=== PATIENT | female | born 1965 | race Two or more races ===

== ENCOUNTER 2016-10-24 18:10 | Inpatient (IN) | payer MEDICAID, OTHER ==
[~2016-10-24] VITALS: Ht 162.6 cm; Wt 74.2 kg
[2016-10-24] MEDS ORDERED: ONDANSETRON PF 4 MG/2 ML VIAL. ONE (18:31)
[2016-10-24] MEDS ORDERED: IV NORMAL SALINE 1000ML BAG 1,000 ML IV SCH (18:35)
[2016-10-24 18:44] LABS: BASO # 0.1 x10^3/uL (0.0-0.2); BASO % 1 % (0-3); EOS % 0 % (0-3); HEMATOCRIT 40.9 % (36.0-47.0); LYMPH # 1.4 x10^3/uL (1.0-4.8); LYMPH % 11 % (24-48); MEAN CORPUSCULAR HEMOGLOBIN 27 pg (25-35); MEAN CORPUSCULAR HGB CONC 34 g/dL (31-37); MEAN CORPUSCULAR VOLUME 78 fL (79-100); MONO % 5 % (0-9); NEUT % 84 % (31-73); PLATELET COUNT 503 x10^3/uL (140-400); RED BLOOD COUNT 5.25 x10^6/uL (3.50-5.40); RED CELL DISTRIBUTION WIDTH 13.9 % (11.5-14.5); WHITE BLOOD COUNT 13.2 x10^3/uL (4.0-11.0)
[2016-10-24] MEDS ORDERED: ONDANSETRON PF 4 MG/2 ML VIAL. IV ONE ×2 (18:45→20:30)
[2016-10-24 18:54] LABS: INR 1.2 (0.8-1.1)
[2016-10-24 18:58] LABS: NEG OBC SER NEG; POS OBC SER POS
[2016-10-24 18:59] LABS: CALCIUM 9.1 mg/dL (8.5-10.1); CREATININE 0.8 mg/dL (0.6-1.0); GFR 75.9; POTASSIUM 3.7 mmol/L (3.5-5.1)
[2016-10-24 19:11] LABS: ALBUMIN 3.7 g/dL (3.4-5.0); DIRECT BILIRUBIN 0.1 mg/dL (0.0-0.2); MAGNESIUM 1.7 mg/dL (1.8-2.4); TOTAL BILIRUBIN 0.3 mg/dL (0.2-1.0); TOTAL PROTEIN 8.2 g/dL (6.4-8.2)
[2016-10-24 19:12] LABS: BILIRUBIN,URINE NEGATIVE (NEG); GLUCOSE,URINE 500 mg/dL (NEG); NITRITE,URINE NEGATIVE (NEG); PROTEIN,URINE NEGATIVE (NEG-TRACE); UROBILINOGEN,URINE 0.2 mg/dL (0.2 mg/dL)
[2016-10-24 19:17] LABS: BARBITURATES NEG (NEG); BENZODIAZEPINES NEG (NEG); CANNABINOIDS NEG (NEG); COCAINE NEG (NEG); METHADONE NEG (NEG); OPIATES NEG (NEG); PHENCYCLIDINE NEG (NEG)
[2016-10-24 19:23] LABS: BACTERIA,URINE 0 /HPF (0-FEW); RBC,URINE 0 /HPF (0-2); SQUAMOUS EPITHELIAL CELL,UR OCC /LPF; WBC,URINE OCC /HPF (0-4)
[2016-10-24 19:27] LABS: ETHANOL < 10 mg/dL (0-10)
[2016-10-24] MEDS ORDERED: ACETYLCYSTEINE IV ONE ×2 (19:45→22:00)
[2016-10-24] MEDS ORDERED: DEXTROSE 5% IV ONE ×2 (19:45→22:00)
--- NOTE | 2016-10-24 20:01 | PHYS DOC ---
Past Medical History Past Medical History: Unknown Past Surgical History: Other Additional Past Surgical Histo: unknown Additional Information: unknown Additional Information: unknown Drug Use: None Social History Narrative: unknown Adult General Chief Complaint Chief Complaint: OVERDOSE HPI HPI Patient is a 51 year old female who presents with complaint of nausea and vomiting. The patient was brought to the emergency department by EMS for concern of drug overdose. Patient made a family that she took 2 bottles of acetaminophen tablets, equating to approximately 200 tablets. She states that she did this at 1100 this morning. Patient voices suicidal intent for overdose. Patient is not answering any further questions in the emergency department. Patient has had active vomiting upon arrival in the emergency department and EMS reports the patient was having vomiting prior to arrival. Patient noted to be lethargic and display altered mental status by the patient's family. Review of Systems Review of Systems Constitutional: Denies fever or chills [] Eyes: Denies change in visual acuity, redness, or eye pain [] HENT: Denies nasal congestion or sore throat [] Respiratory: Denies cough or shortness of breath [] Cardiovascular: Denies chest pain or edema [] GI: Nausea, vomiting, denies diarrhea [] : Denies dysuria or hematuria [] Musculoskeletal: Denies back pain or joint pain [] Integument: Denies rash or skin lesions [] Neurologic: Denies headache, focal weakness or sensory changes [] Current Medications Current Medications Current Medications Medications (Trade) Dose Ordered Sig/Sriram Start Time Stop Time Status Last Admin Dose Admin Acetylcysteine 4.2 gm/Dextrose 521 ml @ 125 mls/hr 1X ONCE 10/24/16 22:00 10/25/16 02:10 Acetylcysteine 8.39 gm/Dextrose 1,041.95 ml @ 62.5 mls/ hr 1X ONCE 10/25/16 02:00 10/25/16 18:40 Acetylcysteine 12.59 gm/Dextrose 262.95 ml @ 200 mls/ hr 1X ONCE 10/24/16 19:45 10/24/16 21:03 Ondansetron HCl (Zofran) 4 mg 1X ONCE 10/24/16 18:45 10/24/16 18:46 DC 10/24/16 18:35 4 MG Sodium Chloride 1,000 ml @ 1,000 mls/hr Q1H 10/24/16 18:35 10/24/16 19:34 DC Allergies Allergies Allergies Coded Allergies Type Severity Reaction Last Updated Verified No Known Drug Allergies 10/24/16 No Physical Exam Physical Exam Constitutional: Lethargic, afebrile, actively vomiting. [] HENT: Normocephalic, atraumatic, bilateral external ears normal, oropharynx dry , no oral exudates, nose normal. [] Eyes: PERRLA, EOMI, conjunctiva normal, no discharge. [] Neck: Normal range of motion, no tenderness, supple, no stridor. [] Cardiovascular:Heart rate regular rhythm, no murmur [] Lungs & Thorax: Bilateral breath sounds clear to auscultation [] Abdomen: Bowel sounds normal, soft, no tenderness, no masses, no pulsatile masses. [] Skin: Warm, dry, no erythema, no rash. [] Back: No tenderness, no CVA tenderness. [] Extremities: No tenderness, no cyanosis, no clubbing, ROM intact, no edema. [] Neurologic: Lethargic, confused, normal motor function, normal sensory function , no focal deficits noted. [] Current Patient Data Vital Signs Vital Signs Date Time Temp Pulse Resp B/P (MAP) Pulse Ox O2 Delivery O2 Flow Rate FiO2 10/24/16 19:43 85 16 137/77 (97) 96 Room Air 10/24/16 18:10 98.2 98.2 Lab Values Laboratory Tests Test 10/24/16 18:09 10/24/16 18:25 10/24/16 18:55 10/24/16 19:12 POC Urine HCG, Qualitative Hcg negative (Negative) White Blood Count 13.2 x10^3/uL (4.0-11.0) H Red Blood Count 5.25 x10^6/uL (3.50-5.40) Hemoglobin 14.0 g/dL (12.0-15.5) Hematocrit 40.9 % (36.0-47.0) Mean Corpuscular Volume 78 fL (79-100) L Mean Corpuscular Hemoglobin 27 pg (25-35) Mean Corpuscular Hemoglobin Concent 34 g/dL (31-37) Red Cell Distribution Width 13.9 % (11.5-14.5) Platelet Count 503 x10^3/uL (140-400) H Neutrophils (%) (Auto) 84 % (31-73) H Lymphocytes (%) (Auto) 11 % (24-48) L Monocytes (%) (Auto) 5 % (0-9) Eosinophils (%) (Auto) 0 % (0-3) Basophils (%) (Auto) 1 % (0-3) Neutrophils # (Auto) 11.1 x10^3uL (1.8-7.7) H Lymphocytes # (Auto) 1.4 x10^3/uL (1.0-4.8) Monocytes # (Auto) 0.6 x10^3/uL (0.0-1.1) Eosinophils # (Auto) 0.0 x10^3/uL (0.0-0.7) Basophils # (Auto) 0.1 x10^3/uL (0.0-0.2) Prothrombin Time 14.0 SEC (11.7-14.0) Prothrombin Time INR 1.2 (0.8-1.1) H PTT 30 SEC (24-38) Sodium Level 133 mmol/L (136-145) L Potassium Level 3.7 mmol/L (3.5-5.1) Chloride Level 96 mmol/L (98-107) L Carbon Dioxide Level 20 mmol/L (21-32) L Anion Gap 17 (6-14) H Blood Urea Nitrogen 15 mg/dL (7-20) Creatinine 0.8 mg/dL (0.6-1.0) Estimated GFR (Cockcroft-Gault) 75.9 Glucose Level 216 mg/dL (70-99) H Lactic Acid Level 4.8 mmol/L (0.4-2.0) *H Calcium Level 9.1 mg/dL (8.5-10.1) Magnesium Level 1.7 mg/dL (1.8-2.4) L Total Bilirubin 0.3 mg/dL (0.2-1.0) Direct Bilirubin 0.1 mg/dL (0.0-0.2) Aspartate Amino Transferase (AST) 23 U/L (15-37) Alanine Aminotransferase (ALT) 36 U/L (14-59) Alkaline Phosphatase 124 U/L (46-116) H Total Protein 8.2 g/dL (6.4-8.2) Albumin 3.7 g/dL (3.4-5.0) Lipase 190 U/L (73-393) Serum Test, Qualitative Negative (NEG) Salicylates Level < 2.8 mg/dL (2.8-20.0) L Salicylate Last Dose Date Salicylate Last Dose Time Acetaminophen Level 348.72 mcg/ml (10-30) *H Acetaminophen Last Dose Date Acetaminophen Last Dose Time Ethyl Alcohol Level < 10 mg/dL (0-10) Urine Color Yellow Urine Clarity Clear Urine pH 5.0 Urine Specific [place] >=1.030 Urine Protein Negative mg/dL (NEG-TRACE) Urine Glucose (UA) 500 mg/dL (NEG) Urine Ketones (Stick) Negative mg/dL (NEG) Urine Blood Negative (NEG) Urine Nitrite Negative (NEG) Urine Bilirubin Negative (NEG) Urine Urobilinogen Dipstick 0.2 mg/dL (0.2 mg/dL) Urine Leukocyte Esterase Negative (NEG) Urine RBC 0 /HPF (0-2) Urine WBC Occ /HPF (0-4) Urine Squamous Epithelial Cells Occ /LPF Urine Bacteria 0 /HPF (0-FEW) Urine Opiates Screen Neg (NEG) Urine Methadone Screen Neg (NEG) Urine Barbiturates Neg (NEG) Urine Phencyclidine Screen Neg (NEG) Urine Amphetamine/Methamphetamine Neg (NEG) Urine Benzodiazepines Screen Neg (NEG) Urine Cocaine Screen Neg (NEG) Urine Cannabinoids Screen Neg (NEG) Urine Ethyl Alcohol Neg (NEG) Ammonia 17 mcmol/L (11-34) Laboratory Tests 10/24/16 18:25 Laboratory Tests 10/24/16 18:25 EKG EKG Not performed [] Radiology/Procedures Radiology/Procedures Not performed [] Course & Med Decision Making Course & Med Decision Making Pertinent Labs and Imaging studies reviewed. (See chart for details) Patient's Tylenol level was found to be severely toxic. Patient was initiated on Acetadote in the emergency department. The patient will require admission to ICU for further monitoring and treatment. I spoke with Dr. Alcantra who accepted care patient in hospital. Spoke with family regarding lab findings and treatment plan and they are in agreement at time of admission. Critical care time excluding procedures: 45 minutes Dragon Disclaimer Dragon Disclaimer This electronic medical record was generated, in whole or in part, using a voice recognition dictation system. Departure Departure Impression: Primary Impression: Intentional acetaminophen overdose Additional Impressions: Acetaminophen toxicity Lactic acidosis Hyperglycemia Disposition: 09 ADMITTED INPATIENT Admitting Physician: Other Condition: GUARDED Referrals: NO PCP (PCP) Problem Qualifiers Primary Impression: Intentional acetaminophen overdose Encounter type: initial encounter Qualified Codes: T39.1X2A - Poisoning by 4 -aminophenol derivatives, intentional self-harm, initial encounter Additional Impressions: Acetaminophen toxicity Encounter type: initial encounter Injury intent: intentional self-harm Qualified Codes: T39.1X2A - Poisoning by 4-aminophenol derivatives, intentional self-harm, initial encounter HUBER GAYLE MD October 24, 2016 20:01
[2016-10-24] MEDS ORDERED: ONDANSETRON PF 4 MG/2 ML VIAL. IV PRN (20:15)
[2016-10-24] MEDS ORDERED: METOCLOPRAMIDE HCL 10 MG/2 ML VIAL. IV ONE (21:45)
[2016-10-24] MEDS ORDERED: diphenhydrAMINE 50 MG/ML VIAL IVP ONE (22:30)
[2016-10-24 22:45] VITALS: BP 122/75
[2016-10-24] MEDS ORDERED: CALCIUM CARBONATE 500 MG TAB.CHEW PO ONE (22:45)
[2016-10-24 23:00] VITALS: BP 117/73
[2016-10-24] MEDS: FAMOTIDINE 20 MG TABLET. PO SCH (23:10)
[2016-10-24] MEDS: IV NORMAL SALINE 1000ML BAG 1,000 ML IV SCH (23:10)
[2016-10-24 23:15] VITALS: BP 116/68
[2016-10-24 23:30] VITALS: BP 118/70
[2016-10-24 23:45] VITALS: BP 109/60
[2016-10-25] VITALS (13 sets, daily range): BP systolic 98–155; BP diastolic 55–81
--- NOTE | 2016-10-25 00:18 | HP ---
ADMIT DATE: 10/24/2016 CHIEF COMPLAINT: Intentional Tylenol overdose. HISTORY OF PRESENT ILLNESS: The patient is a 51-year-old [place] woman presenting to the Emergency Room with her family for intentional drug overdose with Tylenol. Apparently, she told one of her daughters that she took 2 bottles of acetaminophen equaling approximately 200 tablets. She did this early this morning at 11:00. She voiced suicidal intent as she feels nobody is taking care of her. She was actively vomiting on arrival to the Emergency Room and had done so prior as well. She was noted to be lethargic by the family. On current exam, however, she is alert, complains of gastritis. On further questioning with the family, she apparently has done drug overdoses for suicidal ideation in the past. She does not see a psychiatric care regularly. PAST MEDICAL HISTORY: Unknown ____. FAMILY HISTORY: Positive for one of her sisters with depression. SOCIAL HISTORY: Currently lives with one of her daughters and her family. No smoking and no drugs. ALLERGIES: No known drug allergies. HOME MEDICATIONS: Unknown. REVIEW OF SYSTEMS: Currently, complaining only of burning in the epigastric area. Denies any shortness of breath, chest pain, nausea or vomiting. PHYSICAL EXAMINATION: VITAL SIGNS: From today show a blood pressure of 142/78, heart rate of 77, respiratory rate at 16. She is afebrile. GENERAL: This is a 51-year-old [place] woman resting on a stretcher, eyes closed, does open eyes on verbal input. HEENT: Shows no scleral icterus. NECK: Supple without any lymphadenopathy. LUNGS: Clear. HEART: Has regular rate and rhythm. ABDOMEN: Has positive bowel sounds, soft, tenderness to palpation in the epigastric area. EXTREMITIES: Show no edema. SKIN: Warm, soft and dry. LABORATORY DATA: CBC with a WBC of 13.2, hemoglobin 14.0, platelets of 503, MCV at 78. Chemistries with a BUN and creatinine of 15 and 0.8, sodium of 133, bicarbonate at 20, glucose at 216, magnesium 1.7. LFTs with normal transaminases, alkaline phosphatase minimally elevated at 124. Tox screen positive for acetaminophen at 348.7, approximately 7 hours post-ingestion. ASSESSMENT AND PLAN: The patient is a 51-year-old [place] woman with intentional Tylenol overdose. She hopefully has vomited the majority of her pills. Nevertheless, Tylenol level is very elevated. We will start her on acetylcysteine for management of toxicity. She will receive regular monitoring of Tylenol levels. Should her levels become even higher or she become symptomatic with liver failure, we will have to transfer to . Situation was discussed with her children. The patient appears to be diabetic by labs. We will start insulin sliding scale for now. Hopefully, one of the daughters will be bringing in her med list. The patient is anemic with microcytosis as well as thrombocytosis, suspicious for iron deficiency. We will obtain iron labs as well. For prophylaxis, she will be started on Pepcid. We will start SCDs for the time being. If she remains in the ICU prolonged, we will start Lovenox. SHAHANA DURAND MD DR: UR/nts JOB#: [id number] / [id number]
[2016-10-25] MEDS ORDERED: ACETYLCYSTEINE IV ONE ×3 (01:45→09:00)
[2016-10-25] MEDS ORDERED: DEXTROSE 5% IV ONE ×3 (01:45→09:00)
--- NOTE | 2016-10-25 03:32 | ACF ---
Admission Forms Criteria SUBSTANCE ABUSE Clinical Indications for Admission to Inpatient Care (Place 'X' for any and all applicable criteria): Admission is indicated due to ANY ONE of the following(1)(2)(3)(4)(5): [ ]I. Delirium due to alcohol or sedative A withdrawal B ( Also use Delirium Criteria as appropriate)1,6,7 [ ]II. Alcohol or sedative withdrawal with high-risk indicator as manifested by ALL of the following1,3,6,7 [ ]a) Signs of withdrawal as indicated by ANY ONE of the following: [ ]i) Heart rate greater than 100 beats per minute [ ]ii) Nausea or vomiting [ ]iii) Other physical signs of alcohol or sedative withdrawal [ ]iv) Tremor [ ](v) Increased perspiration [ ]b) Elevated risk due to a historical or comorbid factor as indicated by ANY ONE of the following: [ ]i) History of delirium due to alcohol or sedative withdrawal [ ]ii) History of repetitive seizures due to alcohol or sedative withdrawal C [ ]iii) Intrinsic seizure disorder (epilepsy) [ ]iv) [ ]v) Comorbid medical condition that can be dangerously destabilized by alcohol or sedative withdrawal (eg, severe cardiac disease) [ ]III. Severe alcohol or sedative withdrawal that is unmanageable at lower level of care, as manifested by ALL of the following1,3,6,7 [ ]a) Marked signs of withdrawal as indicated by ANY ONE of the following: [ ]i) Heart rate greater than 120 beats per minute [ ]ii) Vomiting [ ]iii) Grossly visible tremor [ ]iv) Profuse perspiration [ ]v) Temperature greater than 38.3 degrees C (101 degrees F) [ ]vi) Other marked physical signs of alcohol or sedative withdrawal [ ]b) Signs of withdrawal which require inpatient treatment as indicated by ANY ONE of the following: [ ]i) Inadequate response to pharmacotherapy in emergency department or other appropriate lower level of care [ ]ii) Lower level of care not feasible or appropriate (eg, unavailable or inappropriate to patient condition or treatment history) [ ]IV. Severely complicated opioid withdrawal that requires astmum-ndc-sxcbb care as manifested by ALL of the following 1,4,7,11 [ ]a) Vomiting or diarrhea due to opioid withdrawal [ ]b) Marked dehydration or electrolyte abnormality that cannot be corrected (to near normal) in an emergency department or other ambulatory setting (eg, serum K<2.5 mEq/L , serum Na <130 mEq/L [X ]V. Acute toxicity or instability from substance use requiring inpatient care (eg, altered mental status, respiratory depression) that has had inadequate response to, or is judged inappropriate for, treatment at lower level of care (eg, emergency department, observation care) [ ]. Other inpatient medical or psychiatric care is needed due to risk or comorbidity as indicated by ALL of the following(18): [ ]a) Treatment is needed because of patient risk due to ANY ONE of the following: [ ]i) Medical condition (eg, severe cardiac disease) that requires 24-hour monitoring and treatment due to danger of destabilization by alcohol or sedative withdrawal is present [ ]ii) Imminent danger to self is present due to ANY ONE of the following(19)(20)(21): [ ]1) Imminent risk for recurrence of Suicide attempt or act of serious Harm to self is present as indicated by ALL of the following: [ ]A. There has been very recent Suicide attempt or deliberate act of serious Harm to self. [ ]B. There has not been Sufficient relief of the factors that precipitated the attempt or act. [ ]2) Current plan for suicide or serious Harm to self is present. [ ]3) Command auditory hallucinations for suicide or serious Harm to self are present. [ ]4) Patient has persistent Thoughts of suicide or serious Harm to self that cannot be adequately monitored at lower level of care due to ANY ONE of the following[E]: [ ]A. Insufficient behavioral care is available to meet patient needs (such as required provider or lower level facility is not available). [ ]B. Patient characteristics such as high impulsivity or unreliability are present. [ ]C. Environment does not support recovery. [ ]D. Ready access to lethal means [ ]iii) Imminent danger to others is present due to ANY ONE of the following(19)(23)(24): [ ]1) Imminent risk for recurrence of attempt to seriously Harm another is present as indicated by ALL of the following: [ ]A. There has been very recent attempt to seriously Harm another. [ ]B. There has not been Sufficient relief of factors that precipitated the attempt or act. [ ]2) Current plan for homicide or serious Harm to another is present. [ ]3) Command auditory hallucinations or paranoid delusions contributing to risk for homicide or serious Harm to another are present. [ ]4) Patient has persistent thoughts of homicide or serious Harm to another that cannot be adequately monitored at lower level of care because of ANY ONE of the following[E]: [ ]A. Insufficient behavioral care is available to meet patient needs (such as required provider or lower level facility is not available). [ ]B. High impulsivity or unreliability is present. [ ]C. Environment does not support recovery. [ ]D. Ready access to lethal means [ ]iv) Severe dysfunction in daily living related to substance use disorder as indicated by ANY ONE of the following(33): [ ]a) Extreme deterioration in social interactions (eg , threatening behaviors with little or no provocation) [ ]b) Complete withdrawal from all social interactions [ ]c) Complete neglect of self-care with associated impairment in physical status [ ]d) Extreme disruption in vegetative function (eg, life-sustaining functions such as eating) [ ]e) Complete inability to maintain any appropriate aspect of personal responsibility in any adult roles (eg, occupational, parental ) [ ]v) Other emotional, behavioral, or cognitive symptoms of sufficient severity to preclude ability to engage in recovery without 24-hour monitoring and treatment are present. [ ]vi) Patient requires monitoring due to substance use in combination with medical, psychiatric, or environmental factors that prevent adequate management at lower level of care as indicated by ALL of the following: [ ]1) Significant substance use effects, medical conditions, or psychiatric comorbidities are present as indicated by ANY ONE of the following [ ]A. Substance toxicity or withdrawal requires medical monitoring. [ ]B. Medical comorbidity requires medical monitoring for destabilization due to alcohol or sedative withdrawal. [ ]C. Emotional, behavioral, or cognitive symptoms of sufficient severity to limit or preclude ability to engage in treatment are present. [ ]2) Conditions, barriers, or environmental factors preventing treatment at lower level of care are present as indicated by ANY ONE of the following: [ ]A. Psychiatric comorbidity or opposition to treatment requires 24-hour setting to ensure adherence with medical treatment or adequate motivating interventions. [ ]B. Severe behavioral problems (eg, escalating relapse behaviors, acute psychiatric or substance use crisis, inability to recognize signs and symptoms of relapse ) require 24-hour setting for relapse prevention.[F] [ ]C. Living environment outside of 24-hour setting prevents recovery (eg, abuse, victimization, patient inability to cope). [ ]b Treatment situation and needs are appropriate for inpatient level ( instead of using lower level of care) as indicated by ANY ONE of the following( 25)(26)(27): [ ]i) Patient is unwilling to participate voluntarily and requires treatment (eg, legal commitment) in involuntary unit.(23) [ ]ii) Voluntary treatment at lower level is not feasible (eg, lower level care unavailable or inappropriate for patient condition). [ ]iii) Physical restraint, seclusion, or other involuntary control is needed (eg, actively violent patient for whom treatment in an involuntary unit is deemed necessary in accord with applicable medical and legal criteria).(23) [ ]iv) Kimzop-axm-qmzjl medical or nursing care to address symptoms and initiate interventions is required; specific need is identified. Extended stay beyond goal length of stay may be needed for: [ ]a) Onset of delirium [ ]b) Recurrent seizures [ ]c) Persistent severe alcohol or sedative withdrawal [ ]d) Persistent dangerous behavior The original [facility] content created by [employer] has been revised. The portions of the content which have been revised are identified through the use of italic text or in bold, and [facility] has neither reviewed nor approved the modified material. All other unmodified content is copyright [facility]. Please see references footnoted in the original [facility] edition 2016 Admission Criteria Met?: Yes EUGENIA ESTEVEZ October 25, 2016 03:32
[2016-10-25] MEDS: IV NORMAL SALINE 1000ML BAG 1,000 ML IV SCH ×2 (05:34→09:21)
[2016-10-25 05:56] LABS: BASO # 0.1 x10^3/uL (0.0-0.2); BASO % 1 % (0-3); EOS % 0 % (0-3); HEMATOCRIT 37.1 % (36.0-47.0); HEMOGLOBIN 12.6 g/dL (12.0-15.5); LYMPH % 20 % (24-48); MEAN CORPUSCULAR HEMOGLOBIN 27 pg (25-35); MEAN CORPUSCULAR HGB CONC 34 g/dL (31-37); MEAN CORPUSCULAR VOLUME 78 fL (79-100); MONO % 10 % (0-9); NEUT % 69 % (31-73); PLATELET COUNT 414 x10^3/uL (140-400); RED BLOOD COUNT 4.74 x10^6/uL (3.50-5.40); RED CELL DISTRIBUTION WIDTH 13.9 % (11.5-14.5); WHITE BLOOD COUNT 14.8 x10^3/uL (4.0-11.0)
[2016-10-25 06:15] LABS: ALBUMIN 2.9 g/dL (3.4-5.0); ALBUMIN/GLOBULIN RATIO 0.8 (1.0-1.7); CALCIUM 8.2 mg/dL (8.5-10.1); CREATININE 0.6 mg/dL (0.6-1.0); GFR 105.8; POTASSIUM 3.2 mmol/L (3.5-5.1); TOTAL BILIRUBIN 0.3 mg/dL (0.2-1.0); TOTAL PROTEIN 6.4 g/dL (6.4-8.2)
--- NOTE | 2016-10-25 06:45 | EKG ---
[facility] [address] [place] [address] Test Date: 2016-10-24 Test Time: 18:35:56 Pat Name: AMY LOVE Department: Room: [facility] Gender: F Registered Nurse Teacher: : [id number] Requested By: HUBER GAYLE Order Number: [id number] Reading MD: Rich Colón Measurements Intervals [place] Rate: 86 P: 52 AR: 138 QRS: -4 QRSD: 82 T: 20 QT: 366 QTc: 441 Interpretive Statements SINUS RHYTHM Electronically Signed On 10-25-2016 10:54:07 CDT by Rich Colón
[2016-10-25] MEDS: FAMOTIDINE 20 MG TABLET. PO SCH (08:23)
--- NOTE | 2016-10-25 10:25 | PDOC ---
PROGRESS NOTES Chief Complaint Chief Complaint SI with tylenol O/D ASSESSMENT AND PLAN: 1. Tylenol O/D: recovering very quickly with acetamenophen levels halving every 6 hrs or so. no hepatitis at this time. continue acetylcysteine for now. , rpt level q6h 2. Suicidal intent: PAT team eval. apparently not the first time she used meds to O/D. 3. Dispo: essentially cleared from medical standpoint; as per PAT team History of Present Illness History of Present Illness c/o RUQ pain w/ palpation, no nausea or BOWSER Vitals Vitals Vital Signs Date Time Temp Pulse Resp B/P (MAP) Pulse Ox O2 Delivery O2 Flow Rate FiO2 10/25/16 10:00 74 12 138/73 (94) 97 Room Air 10/25/16 08:00 98.5 98.5 Physical Exam General: Alert, No acute distress Heart: Regular rate Lungs: Clear Abdomen: Normal bowel sounds, Other (RUQ TTP) Extremities: No clubbing, No edema Skin: No rashes Labs LABS Laboratory Tests Test 10/24/16 18:09 10/24/16 18:25 10/24/16 18:55 10/24/16 19:12 Bedside Urine HCG, Qualitative Hcg negative (Negative) White Blood Count 13.2 x10^3/uL (4.0-11.0) Red Blood Count 5.25 x10^6/uL (3.50-5.40) Hemoglobin 14.0 g/dL (12.0-15.5) Hematocrit 40.9 % (36.0-47.0) Mean Corpuscular Volume 78 fL (79-100) Mean Corpuscular Hemoglobin 27 pg (25-35) Mean Corpuscular Hemoglobin Concent 34 g/dL (31-37) Red Cell Distribution Width 13.9 % (11.5-14.5) Platelet Count 503 x10^3/uL (140-400) Neutrophils (%) (Auto) 84 % (31-73) Lymphocytes (%) (Auto) 11 % (24-48) Monocytes (%) (Auto) 5 % (0-9) Eosinophils (%) (Auto) 0 % (0-3) Basophils (%) (Auto) 1 % (0-3) Neutrophils # (Auto) 11.1 x10^3uL (1.8-7.7) Lymphocytes # (Auto) 1.4 x10^3/uL (1.0-4.8) Monocytes # (Auto) 0.6 x10^3/uL (0.0-1.1) Eosinophils # (Auto) 0.0 x10^3/uL (0.0-0.7) Basophils # (Auto) 0.1 x10^3/uL (0.0-0.2) Prothrombin Time 14.0 SEC (11.7-14.0) Prothromb Time International Ratio 1.2 (0.8-1.1) Activated Partial Thromboplast Time 30 SEC (24-38) Sodium Level 133 mmol/L (136-145) Potassium Level 3.7 mmol/L (3.5-5.1) Chloride Level 96 mmol/L (98-107) Carbon Dioxide Level 20 mmol/L (21-32) Anion Gap 17 (6-14) Blood Urea Nitrogen 15 mg/dL (7-20) Creatinine 0.8 mg/dL (0.6-1.0) Estimated GFR (Cockcroft-Gault) 75.9 Glucose Level 216 mg/dL (70-99) Lactic Acid Level 4.8 mmol/L (0.4-2.0) Calcium Level 9.1 mg/dL (8.5-10.1) Magnesium Level 1.7 mg/dL (1.8-2.4) Total Bilirubin 0.3 mg/dL (0.2-1.0) Direct Bilirubin 0.1 mg/dL (0.0-0.2) Aspartate Amino Transf (AST/SGOT) 23 U/L (15-37) Alanine Aminotransferase (ALT/SGPT) 36 U/L (14-59) Alkaline Phosphatase 124 U/L (46-116) Total Protein 8.2 g/dL (6.4-8.2) Albumin 3.7 g/dL (3.4-5.0) Lipase 190 U/L (73-393) Serum Test, Qualitative Negative (NEG) Salicylates Level < 2.8 mg/dL (2.8-20.0) Salicylate Last Dose Date Salicylate Last Dose Time Acetaminophen Level 348.72 mcg/ml (10-30) Acetaminophen Last Dose Date Acetaminophen Last Dose Time Ethyl Alcohol Level < 10 mg/dL (0-10) Urine Color Yellow Urine Clarity Clear Urine pH 5.0 Urine Specific [place] >=1.030 Urine Protein Negative mg/dL (NEG-TRACE) Urine Glucose (UA) 500 mg/dL (NEG) Urine Ketones (Stick) Negative mg/dL (NEG) Urine Blood Negative (NEG) Urine Nitrite Negative (NEG) Urine Bilirubin Negative (NEG) Urine Urobilinogen Dipstick 0.2 mg/dL (0.2 mg/dL) Urine Leukocyte Esterase Negative (NEG) Urine RBC 0 /HPF (0-2) Urine WBC Occ /HPF (0-4) Urine Squamous Epithelial Cells Occ /LPF Urine Bacteria 0 /HPF (0-FEW) Urine Opiates Screen Neg (NEG) Urine Methadone Screen Neg (NEG) Urine Barbiturates Neg (NEG) Urine Phencyclidine Screen Neg (NEG) Urine Amphetamine/Methamphetamine Neg (NEG) Urine Benzodiazepines Screen Neg (NEG) Urine Cocaine Screen Neg (NEG) Urine Cannabinoids Screen Neg (NEG) Urine Ethyl Alcohol Neg (NEG) Ammonia 17 mcmol/L (11-34) Test 10/24/16 21:55 10/25/16 03:25 10/25/16 05:45 Lactic Acid Level 2.7 mmol/L (0.4-2.0) Acetaminophen Level 92.4 mcg/ml (10-30) 47.02 mcg/ml (10-30) Acetaminophen Last Dose Date Acetaminophen Last Dose Time White Blood Count 14.8 x10^3/uL (4.0-11.0) Red Blood Count 4.74 x10^6/uL (3.50-5.40) Hemoglobin 12.6 g/dL (12.0-15.5) Hematocrit 37.1 % (36.0-47.0) Mean Corpuscular Volume 78 fL (79-100) Mean Corpuscular Hemoglobin 27 pg (25-35) Mean Corpuscular Hemoglobin Concent 34 g/dL (31-37) Red Cell Distribution Width 13.9 % (11.5-14.5) Platelet Count 414 x10^3/uL (140-400) Neutrophils (%) (Auto) 69 % (31-73) Lymphocytes (%) (Auto) 20 % (24-48) Monocytes (%) (Auto) 10 % (0-9) Eosinophils (%) (Auto) 0 % (0-3) Basophils (%) (Auto) 1 % (0-3) Neutrophils # (Auto) 10.2 x10^3uL (1.8-7.7) Lymphocytes # (Auto) 3.0 x10^3/uL (1.0-4.8) Monocytes # (Auto) 1.4 x10^3/uL (0.0-1.1) Eosinophils # (Auto) 0.1 x10^3/uL (0.0-0.7) Basophils # (Auto) 0.1 x10^3/uL (0.0-0.2) Sodium Level 134 mmol/L (136-145) Potassium Level 3.2 mmol/L (3.5-5.1) Chloride Level 100 mmol/L (98-107) Carbon Dioxide Level 22 mmol/L (21-32) Anion Gap 12 (6-14) Blood Urea Nitrogen 9 mg/dL (7-20) Creatinine 0.6 mg/dL (0.6-1.0) Estimated GFR (Cockcroft-Gault) 105.8 BUN/Creatinine Ratio 15 (6-20) Glucose Level 141 mg/dL (70-99) Calcium Level 8.2 mg/dL (8.5-10.1) Total Bilirubin 0.3 mg/dL (0.2-1.0) Aspartate Amino Transf (AST/SGOT) 13 U/L (15-37) Alanine Aminotransferase (ALT/SGPT) 31 U/L (14-59) Alkaline Phosphatase 97 U/L (46-116) Total Protein 6.4 g/dL (6.4-8.2) Albumin 2.9 g/dL (3.4-5.0) Albumin/Globulin Ratio 0.8 (1.0-1.7) SHAHANA DURAND MD October 25, 2016 10:25
[2016-10-25 10:26] LABS: INR 1.3 (0.8-1.1); PROTHROMBIN TIME PATIENT 15.8 SEC (11.7-14.0)
[2016-10-25] MEDS ORDERED: CLON0.5T3 PO (10:49)
[2016-10-25] MEDS ORDERED: BUSP10TA PO (10:53)
[2016-10-25] MEDS ORDERED: TRAZ150T55 PO (10:53)
[2016-10-25] MEDS ORDERED: BUPR300T4 PO (10:53)
[2016-10-25] MEDS ORDERED: OMEP20CA9 PO (10:53)
[2016-10-25] MEDS ORDERED: POTASSIUM CHLORIDE 20 MEQ TABLET.ER. PO ONE ×2 (11:15→11:30)
--- NOTE | 2016-10-26 23:24 | DS ---
DATE OF DISCHARGE: 10/25/2016 CHIEF COMPLAINT: Tylenol overdose, intentional. HOSPITAL COURSE: The patient is a 51-year-old woman with history of depression and previous suicidal gestures who presented after admitting to her daughter that she had ingested two bottles of Tylenol. She was promptly admitted to the ICU, placed on acetylcysteine drip and her Tylenol levels were monitored q. 6 hours. She recovered remarkably well, having vomited many of the pills in the Emergency Room. She was deemed stable from a medical standpoint and was therefore transferred to the [facility]. PHYSICAL EXAMINATION: Please refer to note from same day. DISCHARGE DATE: 10/25/2016. DISCHARGE DISPOSITION: To psychiatric unit. DISCHARGE CONDITION: Improved. DISCHARGE DIAGNOSIS: Suicide attempt with Tylenol overdose. DISCHARGE MEDICATIONS: Please refer to MAR. DISCHARGE INSTRUCTIONS: The patient will follow up with Psychiatry at the facility. SHAHANA DURAND MD DR: UR/nts JOB#: [id number] / [id number]
== END 2016-10-25 15:21 | DRG 917 ==
LOC: ER 18:10 → 1 WEST ICU 19:37
PROVIDERS: ADMIT Internal Medicine Hematology & Oncology; ATTEND Internal Medicine Hematology & Oncology
DX: T39.1X2A Poisoning by 4-Aminophenol derivatives, intentional self-harm, initial encounter (principal); G93.41 Metabolic encephalopathy; E87.2 Acidosis; D50.9 Iron deficiency anemia, unspecified; D47.3 Essential (hemorrhagic) thrombocythemia; Y92.89 Other specified places as the place of occurrence of the external cause; F32.9 Major depressive disorder, single episode, unspecified
CPT/HCPCS: 36415; 51702; 80048; 80053; 80076; 81001; 81025; 82140; 83605; 83690; 83735; 84703; 85027; 85610; 85730; 87641; 93005; 96361; 96365; 96366; 96375; G0480; G0481; G6038; J0132; J1200; J2405; J2765; J7030; 80196; 99291-25

== ENCOUNTER 2018-09-19 13:26 | Emergency (ER) | payer SELFPAY ==
[~2018-09-19] VITALS: Ht 165.1 cm; Wt 73.9 kg
[~2018-09-19 13:26] MED LIST: BUPR300T4 PO; BUSP10TA PO; CLON0.5T11 PO; OMEP20CA10 PO; TRAZ150T49 PO
[2018-09-19 14:18] LABS: BASO # 0.1 x10^3/uL (0.0-0.2); BASO % 1 % (0-3); EOS # 0.2 x10^3/uL (0.0-0.7); EOS % 2 % (0-3); HEMATOCRIT 39.3 % (36.0-47.0); LYMPH # 2.8 x10^3/uL (1.0-4.8); LYMPH % 26 % (24-48); MEAN CORPUSCULAR HEMOGLOBIN 27 pg (25-35); MEAN CORPUSCULAR HGB CONC 33 g/dL (31-37); MEAN CORPUSCULAR VOLUME 80 fL (79-100); MONO # 0.7 x10^3/uL (0.0-1.1); MONO % 7 % (0-9); NEUT # 7.1 x10^3uL (1.8-7.7); NEUT % 65 % (31-73); PLATELET COUNT 372 x10^3/uL (140-400); WHITE BLOOD COUNT 10.9 x10^3/uL (4.0-11.0)
--- NOTE | 2018-09-19 14:18 | RAD ---
Examination: PORTABLE CHEST 1V History: chest pain Comparison/Correlation: None Findings: Portable frontal view of the chest was obtained with the patient upright. Heart size and pulmonary vasculature are normal. No pleural effusion or pneumothorax. Small opacity the left lateral lung base is present. Impression: Small opacity the left lateral lung base which probably represents atelectasis or possibly epicardial fat. Consider interval follow-up two-view chest x-ray exam if infiltrate is a concern. Electronically signed by: Héctor Hoyos MD (09/19/2018 2:16 PM) [facility]
[2018-09-19 14:50] LABS: BILIRUBIN,URINE NEGATIVE (NEG); CLARITY,URINE CLEAR; COLOR,URINE YELLOW; NITRITE,URINE NEGATIVE (NEG); PH,URINE 5.5; PROTEIN,URINE NEGATIVE (NEG-TRACE); UROBILINOGEN,URINE 0.2 mg/dL (0.2 mg/dL)
[2018-09-19 14:57] LABS: BARBITURATES NEG (NEG); BENZODIAZEPINES NEG (NEG); CANNABINOIDS NEG (NEG); COCAINE NEG (NEG); METHADONE NEG (NEG); OPIATES NEG (NEG); PHENCYCLIDINE NEG (NEG)
[2018-09-19 15:00] LABS: AMPHETAMINE/METHAMPHETAMINE NEG (NEG)
[2018-09-19 15:01] LABS: SQUAMOUS EPITHELIAL CELL,UR MANY /LPF
[2018-09-19 15:02] LABS: BACTERIA,URINE MOD /HPF (0-FEW)
[2018-09-19 15:03] LABS: RBC,URINE OCC /HPF (0-2)
[2018-09-19 15:11] LABS: CALCIUM 9.3 mg/dL (8.5-10.1); CREATININE 0.9 mg/dL (0.6-1.0); GFR 65.8; POTASSIUM 3.9 mmol/L (3.5-5.1)
[2018-09-19 15:23] LABS: ALBUMIN 3.9 g/dL (3.4-5.0); MAGNESIUM 1.8 mg/dL (1.8-2.4); TOTAL BILIRUBIN 0.2 mg/dL (0.2-1.0); TOTAL PROTEIN 7.9 g/dL (6.4-8.2)
--- NOTE | 2018-09-19 15:26 | EKG ---
[facility] [address] [place] [address] Test Date: 2018-09-19 Test Time: 13:38:30 Pat Name: AMY LOVE Department: Room: Gender: F Bobbin Drier: : 1965 Requested By: TAMAR FINNEY Order Number: [id number] Reading MD: Rich Colón MD Measurements Intervals [place] Rate: 91 P: 46 NV: 142 QRS: 33 QRSD: 78 T: 33 QT: 354 QTc: 437 Interpretive Statements SINUS RHYTHM Electronically Signed On 10-01-2018 9:59:28 CDT by Rich Colón MD
[2018-09-19 15:30] VITALS: BP 127/73
--- NOTE | 2018-09-19 15:53 | PHYS DOC ---
Past Medical History Past Medical History: Anxiety, Depression, Diabetes-Type II, Unknown Past Surgical History: Tubal ligation, Other Additional Past Surgical Histo: HERNIA Additional Information: Denies smoking Alcohol Use: None Drug Use: None Adult General Chief Complaint Chief Complaint: CHEST PAIN HPI HPI Patient is a 53 year old Uzbek speaking female who brought in by her case management from [facility] because of chest pain. History was taking with assistance of translator interpreter. She complaining of substernal chest pain since this morning as a constant pain with shortness of breath and bilateral hand numbness and and rated her pain 6/7. Patient states the pain getting force with movement and taking deep breaths. Patient has history of diabetes mellitus and family history of coronary artery disease and denies history of coronary artery disease by herself or dyslipidemia or hypertension. Patient was admitted to [facility] yesterday because of suicidal ideation with plan to cut her wrist started 3 days ago. Review of Systems Review of Systems Constitutional: Denies fever or chills [] Eyes: Denies change in visual acuity, redness, or eye pain [] HENT: Denies nasal congestion or sore throat [] Respiratory: Denies cough or shortness of breath [] Cardiovascular: No additional information not addressed in HPI [] GI: Denies abdominal pain, nausea, vomiting, bloody stools or diarrhea [] : Denies dysuria or hematuria [] Musculoskeletal: Denies back pain or joint pain [] Integument: Denies rash or skin lesions [] Neurologic: Denies headache, focal weakness or sensory changes [] Endocrine: Denies polyuria or polydipsia [] All other systems were reviewed and found to be within normal limits, except as documented in this note. Current Medications Current Medications Current Medications Medications (Trade) Dose Ordered Sig/Sriram Start Time Stop Time Status Last Admin Dose Admin Lorazepam (Ativan) 1 mg 1X ONCE 09/19/18 15:15 09/19/18 15:16 DC 09/19/18 15:32 1 MG Allergies Allergies Allergies Coded Allergies Type Severity Reaction Last Updated Verified No Known Drug Allergies 10/24/16 No Physical Exam Physical Exam Constitutional: Well developed, well nourished, mild distress, non-toxic appearance. [] HENT: Normocephalic, atraumatic Eyes: PERRLA, EOMI, conjunctiva normal, no discharge. [] Neck: Normal range of motion, no tenderness, supple, no stridor. [] Cardiovascular:Heart rate regular rhythm, no murmur [] Lungs & Thorax: Bilateral breath sounds clear to auscultation [] Abdomen: Bowel sounds normal, soft, no tenderness, no masses, no pulsatile masses. [] Skin: Warm, dry, no erythema, no rash. [] Back: No tenderness, no CVA tenderness. [] Extremities: No tenderness, no cyanosis, no clubbing, ROM intact, no edema. [] Neurologic: Alert and oriented X 3, normal motor function, normal sensory function, no focal deficits noted. [] Psychologic: Affect anxious, judgement normal, suicidal ideation, denies hallucination and homicidal ideation Current Patient Data Vital Signs Vital Signs Date Time Temp Pulse Resp B/P (MAP) Pulse Ox O2 Delivery O2 Flow Rate FiO2 09/19/18 15:30 92 21 127/73 (91) Room Air 09/19/18 15:00 97 09/19/18 13:26 98.5 98.5 Lab Values Laboratory Tests Test 09/19/18 14:06 09/19/18 14:33 White Blood Count 10.9 x10^3/uL (4.0-11.0) Red Blood Count 4.90 x10^6/uL (3.50-5.40) Hemoglobin 13.0 g/dL (12.0-15.5) Hematocrit 39.3 % (36.0-47.0) Mean Corpuscular Volume 80 fL (79-100) Mean Corpuscular Hemoglobin 27 pg (25-35) Mean Corpuscular Hemoglobin Concent 33 g/dL (31-37) Red Cell Distribution Width 14.0 % (11.5-14.5) Platelet Count 372 x10^3/uL (140-400) Neutrophils (%) (Auto) 65 % (31-73) Lymphocytes (%) (Auto) 26 % (24-48) Monocytes (%) (Auto) 7 % (0-9) Eosinophils (%) (Auto) 2 % (0-3) Basophils (%) (Auto) 1 % (0-3) Neutrophils # (Auto) 7.1 x10^3uL (1.8-7.7) Lymphocytes # (Auto) 2.8 x10^3/uL (1.0-4.8) Monocytes # (Auto) 0.7 x10^3/uL (0.0-1.1) Eosinophils # (Auto) 0.2 x10^3/uL (0.0-0.7) Basophils # (Auto) 0.1 x10^3/uL (0.0-0.2) Sodium Level 137 mmol/L (136-145) Potassium Level 3.9 mmol/L (3.5-5.1) Chloride Level 97 mmol/L (98-107) L Carbon Dioxide Level 21 mmol/L (21-32) Anion Gap 19 (6-14) H Blood Urea Nitrogen 12 mg/dL (7-20) Creatinine 0.9 mg/dL (0.6-1.0) Estimated GFR (Cockcroft-Gault) 65.8 BUN/Creatinine Ratio 13 (6-20) Glucose Level 148 mg/dL (70-99) H Calcium Level 9.3 mg/dL (8.5-10.1) Magnesium Level 1.8 mg/dL (1.8-2.4) Total Bilirubin 0.2 mg/dL (0.2-1.0) Aspartate Amino Transferase (AST) 21 U/L (15-37) Alanine Aminotransferase (ALT) 64 U/L (14-59) H Alkaline Phosphatase 147 U/L (46-116) H Creatine Kinase 91 U/L (26-192) Troponin I Quantitative < 0.017 ng/mL (0.000-0.055) Total Protein 7.9 g/dL (6.4-8.2) Albumin 3.9 g/dL (3.4-5.0) Albumin/Globulin Ratio 1.0 (1.0-1.7) Lipase 207 U/L (73-393) Ethyl Alcohol Level < 3 mg/dL (0-10) Urine Collection Type Unknown Urine Color Yellow Urine Clarity Clear Urine pH 5.5 Urine Specific [place] 1.015 Urine Protein Negative mg/dL (NEG-TRACE) Urine Glucose (UA) Negative mg/dL (NEG) Urine Ketones (Stick) Negative mg/dL (NEG) Urine Blood Negative (NEG) Urine Nitrite Negative (NEG) Urine Bilirubin Negative (NEG) Urine Urobilinogen Dipstick 0.2 mg/dL (0.2 mg/dL) Urine Leukocyte Esterase Trace (NEG) Urine RBC Occ /HPF (0-2) Urine WBC 1-4 /HPF (0-4) Urine Squamous Epithelial Cells Many /LPF Urine Bacteria Mod /HPF (0-FEW) Urine Mucus Mod /LPF Urine Opiates Screen Neg (NEG) Urine Methadone Screen Neg (NEG) Urine Barbiturates Neg (NEG) Urine Phencyclidine Screen Neg (NEG) Urine Amphetamine/Methamphetamine Neg (NEG) Urine Benzodiazepines Screen Neg (NEG) Urine Cocaine Screen Neg (NEG) Urine Cannabinoids Screen Neg (NEG) Urine Ethyl Alcohol Neg (NEG) Laboratory Tests 09/19/18 14:06 Laboratory Tests 09/19/18 14:06 EKG EKG EKG interpreted by me. EKG at 1338 showed normal sinus rhythm at rate of 91, no acute ST and T-wave abnormalities, normal AR and QT intervals. Radiology/Procedures Radiology/Procedures [facility] [address] [place] [address] IMAGING REPORT Signed PATIENT: AMY LOVE ACCOUNT: [id number] : 1965 LOCATION: ER AGE: 53 SEX: F EXAM STATUS: REG ER ORD. PHYSICIAN: TAMAR FINNEY MD REASON: chest pain PROCEDURE: PORTABLE CHEST 1V Examination: PORTABLE CHEST 1V History: chest pain Comparison/Correlation: None Findings: Portable frontal view of the chest was obtained with the patient upright. Heart size and pulmonary vasculature are normal. No pleural effusion or pneumothorax. Small opacity the left lateral lung base is present. Impression: Small opacity the left lateral lung base which probably represents atelectasis or possibly epicardial fat. Consider interval follow-up two-view chest x-ray exam if infiltrate is a concern. Electronically signed by: Héctor Peterson MD (09/19/2018 2:16 PM) [facility] DICTATED and SIGNED BY: HÉCTOR PETERSON MD DATE: 09/19/18 1416 Course & Med Decision Making Course & Med Decision Making Pertinent Labs and Imaging studies reviewed. (See chart for details) Evaluation of patient in ER showed 53-year-old female patient brought in from [facility] area because of chest pain. Patient had unremarkable physical exam and EKG and labs with mild anxiety and suicidal ideation. Patient treated with Ativan and felt better. Patient was medically cleared to send back to mental facility with diagnose of panic headache and noncardiac chest pain and suicidal ideation. Dragon Disclaimer Dragon Disclaimer This electronic medical record was generated, in whole or in part, using a voice recognition dictation system. Departure Departure Impression: Primary Impression: Non-cardiac chest pain Additional Impressions: Panic attack Suicidal ideation Diabetes mellitus Disposition: 65 XFER TO PSYCH HOSP/UNIT (I pitcher) Condition: IMPROVED Referrals: NO PCP (PCP) Patient Instructions: Anxiety and Panic Attacks, Suicidal Feelings, How to Help Yourself Additional Instructions: Continue current medication Follow-up with your primary care physician in 2-3 days Return to ER if not getting better Problem Qualifiers Additional Impressions: Diabetes mellitus Diabetes mellitus type: other specified (including CHACHO) Diabetes mellitus alf insulin use: unspecified alf insulin use status Diabetes mellitus complication status: without complication Qualified Codes: E13.9 - Other specified diabetes mellitus without complications TAMAR FINNEY MD Sep 19, 2018 15:53
== END 2018-09-19 16:31 | disposition home or self-care (01) ==
LOC: ER 13:26
DX: R07.89 Other chest pain (principal); F41.0 Panic disorder [episodic paroxysmal anxiety]; F32.9 Major depressive disorder, single episode, unspecified; E11.9 Type 2 diabetes mellitus without complications; R45.851 Suicidal ideations; Z98.51 Tubal ligation status
CPT/HCPCS: 36415; 71045; 80053; 80307; 81001; 82550; 83690; 83735; 84484; 85025; 93005; 96374; 99285; G0480; J2060

== ENCOUNTER 2019-01-07 21:13 | Inpatient (IN) | payer SELFPAY ==
[~2019-01-07] VITALS: Ht 144.8 cm; Wt 78.5 kg
[2019-01-07 21:44] LABS: BASO # 0.1 x10^3/uL (0.0-0.2); BASO % 1 % (0-3); EOS # 0.3 x10^3/uL (0.0-0.7); EOS % 3 % (0-3); HEMATOCRIT 41.2 % (36.0-47.0); LYMPH # 3.1 x10^3/uL (1.0-4.8); LYMPH % 29 % (24-48); MEAN CORPUSCULAR HEMOGLOBIN 27 pg (25-35); MEAN CORPUSCULAR HGB CONC 34 g/dL (31-37); MEAN CORPUSCULAR VOLUME 81 fL (79-100); MONO # 0.8 x10^3/uL (0.0-1.1); MONO % 7 % (0-9); NEUT # 6.6 x10^3/uL (1.8-7.7); NEUT % 61 % (31-73); PLATELET COUNT 452 x10^3/uL (140-400); RED BLOOD COUNT 5.11 x10^6/uL (3.50-5.40); RED CELL DISTRIBUTION WIDTH 13.4 % (11.5-14.5)
[2019-01-07] MEDS ORDERED: IV NORMAL SALINE 1000ML BAG 1,000 ML IV ONE (21:45)
[2019-01-07 21:53] LABS: PROTHROMBIN TIME PATIENT 12.2 SEC (11.7-14.0)
[2019-01-07 21:57] LABS: D-DIMER 0.3 ug/mlFEU (0.00-0.50)
[2019-01-07 22:06] LABS: CALCIUM 9.9 mg/dL (8.5-10.1); CREATININE 0.7 mg/dL (0.6-1.0); GFR 87.9; POTASSIUM 4.4 mmol/L (3.5-5.1)
[2019-01-07 22:11] LABS: ALBUMIN 4.2 g/dL (3.4-5.0); ALBUMIN/GLOBULIN RATIO 1.1 (1.0-1.7); TOTAL BILIRUBIN 0.2 mg/dL (0.2-1.0); TOTAL PROTEIN 8.1 g/dL (6.4-8.2)
--- NOTE | 2019-01-07 22:14 | RAD ---
Exam: CT head INDICATION: Right facial numbness TECHNIQUE: Sequential axial images through the head were obtained without the administration of IV contrast. Comparisons: None FINDINGS: No focal parenchymal lesion or hemorrhage is identified. There is no midline shift or sulcal effacement. No acute vascular territory infarction is identified. Browning-white distinction is preserved. The ventricular system is within normal limits without compression hydrocephalus. The basal cisterns are well maintained. The visualized portions of the paranasal sinuses and mastoid air cells are well-pneumatized. No acute fractures. IMPRESSION: No acute intracranial abnormality. Exposure: One or more of the following in the visualized dose reduction techniques were utilized for this examination: 1. Automated exposure control 2. Adjustment of the MA and/or KV according to patient size Use of iterative of reconstructive technique Electronically signed by: Bibi Jeffrey MD (01/07/2019 10:11 PM) [facility]
[2019-01-07] MEDS ORDERED: DEXTROSE 50% 25 GM / 50ML DISP.SYRIN. IV PRN (22:15)
[2019-01-07] MEDS ORDERED: ASPIRIN 325 MG TABLET PO ONE (22:15)
[2019-01-07] MEDS ORDERED: ONDANSETRON PF 4 MG/2 ML VIAL. IV PRN (22:15)
[2019-01-07] MEDS ORDERED: fentaNYL PF VIAL 100 MCG/2 ML VIAL IV PRN (22:15)
[2019-01-07 22:43] LABS: BILIRUBIN,URINE NEGATIVE (NEG); CLARITY,URINE CLOUDY; COLOR,URINE YELLOW; NITRITE,URINE NEGATIVE (NEG); PH,URINE 6.5; PROTEIN,URINE NEGATIVE (NEG-TRACE); UROBILINOGEN,URINE 0.2 mg/dL (0.2 mg/dL)
[2019-01-07 22:49] LABS: SQUAMOUS EPITHELIAL CELL,UR FEW /LPF
[2019-01-07 22:51] LABS: BACTERIA,URINE 0 /HPF (0-FEW); RBC,URINE 0 /HPF (0-2)
--- NOTE | 2019-01-07 23:47 | RAD ---
Exam: Frontal view of the chest INDICATION: Chest pain TECHNIQUE: Frontal view of the chest Comparisons: 09/19/2018 FINDINGS: The cardiomediastinal silhouette and pulmonary vessels are within normal limits. The lung and pleural spaces are clear. IMPRESSION: No acute cardiopulmonary process. Electronically signed by: Bibi Jeffrey MD (01/07/2019 11:44 PM) [facility]
--- NOTE | 2019-01-08 00:42 | PHYS DOC ---
Past Medical History Past Medical History: Anxiety, Depression, Diabetes-Type II, Hypertension, Unknown Past Surgical History: Tubal ligation, Other Additional Past Surgical Histo: HERNIA Alcohol Use: None Drug Use: None Adult General Chief Complaint Chief Complaint: CHEST PAIN HPI HPI Patient is a 53 year old [f__sex] who presents with [] Review of Systems Review of Systems Constitutional: Denies fever or chills [] Eyes: Denies change in visual acuity, redness, or eye pain [] HENT: Denies nasal congestion or sore throat [] Respiratory: Denies cough or shortness of breath [] Cardiovascular: No additional information not addressed in HPI [] GI: Denies abdominal pain, nausea, vomiting, bloody stools or diarrhea [] : Denies dysuria or hematuria [] Musculoskeletal: Denies back pain or joint pain [] Integument: Denies rash or skin lesions [] Neurologic: Denies headache, focal weakness or sensory changes [] Endocrine: Denies polyuria or polydipsia [] All other systems were reviewed and found to be within normal limits, except as documented in this note. Current Medications Current Medications Current Medications Medications (Trade) Dose Ordered Sig/Sriram Start Time Stop Time Status Last Admin Dose Admin Sodium Chloride 1,000 ml @ 1,000 mls/hr 1X ONCE 01/07/19 21:45 01/07/19 22:44 DC 01/07/19 21:45 1,000 MLS/HR Allergies Allergies Allergies Coded Allergies Type Severity Reaction Last Updated Verified No Known Drug Allergies 10/24/16 No Physical Exam Physical Exam Constitutional: Well developed, well nourished, no acute distress, non-toxic appearance. [] HENT: Normocephalic, atraumatic, bilateral external ears normal, oropharynx moist, no oral exudates, nose normal. [] Eyes: PERRLA, EOMI, conjunctiva normal, no discharge. [] Neck: Normal range of motion, no tenderness, supple, no stridor. [] Cardiovascular:Heart rate regular rhythm, no murmur [] Lungs & Thorax: Bilateral breath sounds clear to auscultation [] Abdomen: Bowel sounds normal, soft, no tenderness, no masses, no pulsatile masses. [] Skin: Warm, dry, no erythema, no rash. [] Back: No tenderness, no CVA tenderness. [] Extremities: No tenderness, no cyanosis, no clubbing, ROM intact, no edema. [] Neurologic: Alert and oriented X 3, normal motor function, normal sensory function, no focal deficits noted. [] Psychologic: Affect normal, judgement normal, mood normal. [] Current Patient Data Vital Signs Vital Signs Date Time Temp Pulse Resp B/P (MAP) Pulse Ox O2 Delivery O2 Flow Rate FiO2 01/07/19 22:03 90 18 172/79 (110) 98 Room Air 01/07/19 21:29 98.3 98.3 Lab Values Laboratory Tests Test 01/07/19 21:25 White Blood Count 11.0 x10^3/uL (4.0-11.0) Red Blood Count 5.11 x10^6/uL (3.50-5.40) Hemoglobin 14.0 g/dL (12.0-15.5) Hematocrit 41.2 % (36.0-47.0) Mean Corpuscular Volume 81 fL (79-100) Mean Corpuscular Hemoglobin 27 pg (25-35) Mean Corpuscular Hemoglobin Concent 34 g/dL (31-37) Red Cell Distribution Width 13.4 % (11.5-14.5) Platelet Count 452 x10^3/uL (140-400) H Neutrophils (%) (Auto) 61 % (31-73) Lymphocytes (%) (Auto) 29 % (24-48) Monocytes (%) (Auto) 7 % (0-9) Eosinophils (%) (Auto) 3 % (0-3) Basophils (%) (Auto) 1 % (0-3) Neutrophils # (Auto) 6.6 x10^3/uL (1.8-7.7) Lymphocytes # (Auto) 3.1 x10^3/uL (1.0-4.8) Monocytes # (Auto) 0.8 x10^3/uL (0.0-1.1) Eosinophils # (Auto) 0.3 x10^3/uL (0.0-0.7) Basophils # (Auto) 0.1 x10^3/uL (0.0-0.2) Prothrombin Time 12.2 SEC (11.7-14.0) Prothrombin Time INR 0.9 (0.8-1.1) D-Dimer (Janice) 0.30 ug/mlFEU (0.00-0.50) Sodium Level 138 mmol/L (136-145) Potassium Level 4.4 mmol/L (3.5-5.1) Chloride Level 99 mmol/L (98-107) Carbon Dioxide Level 26 mmol/L (21-32) Anion Gap 13 (6-14) Blood Urea Nitrogen 11 mg/dL (7-20) Creatinine 0.7 mg/dL (0.6-1.0) Estimated GFR (Cockcroft-Gault) 87.9 BUN/Creatinine Ratio 16 (6-20) Glucose Level 186 mg/dL (70-99) H Calcium Level 9.9 mg/dL (8.5-10.1) Magnesium Level 2.0 mg/dL (1.8-2.4) Total Bilirubin 0.2 mg/dL (0.2-1.0) Aspartate Amino Transferase (AST) 23 U/L (15-37) Alanine Aminotransferase (ALT) 51 U/L (14-59) Alkaline Phosphatase 125 U/L (46-116) H Creatine Kinase 275 U/L (26-192) H Creatine Kinase MB (Mass) 1.8 ng/mL (0.0-3.6) Creatine Kinase MB Relative Index 0.7 % (0-4) Troponin I Quantitative < 0.017 ng/mL (0.000-0.055) OD-Ypk-V-Type Natriuretic Peptide 14 pg/mL (0-124) Total Protein 8.1 g/dL (6.4-8.2) Albumin 4.2 g/dL (3.4-5.0) Albumin/Globulin Ratio 1.1 (1.0-1.7) Lipase 163 U/L (73-393) Laboratory Tests 01/07/19 21:25 Laboratory Tests 01/07/19 21:25 EKG EKG @2122 NSR at 92bpm, NO ST elevation, QRS 78ms, QT/QTc 332/415ms, compared to prior EKG per [facility] from 09/19/18 without significant change Radiology/Procedures Radiology/Procedures PROCEDURE: CT HEAD WO CONTRAST Exam: CT head INDICATION: Right facial numbness TECHNIQUE: Sequential axial images through the head were obtained without the administration of IV contrast. Comparisons: None FINDINGS: No focal parenchymal lesion or hemorrhage is identified. There is no midline shift or sulcal effacement. No acute vascular territory infarction is identified. Browning-white distinction is preserved. The ventricular system is within normal limits without compression hydrocephalus. The basal cisterns are well maintained. The visualized portions of the paranasal sinuses and mastoid air cells are well-pneumatized. No acute fractures. IMPRESSION: No acute intracranial abnormality. Exposure: One or more of the following in the visualized dose reduction techniques were utilized for this examination: 1. Automated exposure control 2. Adjustment of the MA and/or KV according to patient size Use of iterative of reconstructive technique Electronically signed by: Bibi Jeffrey MD (01/07/2019 10:11 PM) [facility] PROCEDURE: CHEST AP ONLY Exam: Frontal view of the chest INDICATION: Chest pain TECHNIQUE: Frontal view of the chest Comparisons: 09/19/2018 FINDINGS: The cardiomediastinal silhouette and pulmonary vessels are within normal limits. The lung and pleural spaces are clear. IMPRESSION: No acute cardiopulmonary process. Electronically signed by: Bibi Jeffrey MD (01/07/2019 11:44 PM) [facility] Course & Med Decision Making Course & Med Decision Making Pertinent Labs and Imaging studies reviewed. (See chart for details) [] Dragon Disclaimer Dragon Disclaimer This electronic medical record was generated, in whole or in part, using a voice recognition dictation system. Departure Departure Impression: Primary Impression: Right sided numbness Additional Impressions: Headache Chest pain Disposition: ADMITTED INPATIENT Admitting Physician: ABEBE (Marsh) Condition: STABLE Referrals: UNKNOWN PCP NAME (PCP) NIHSS Stroke Scale NIH Stroke Scale: NIH Stroke Scale Response (Comments) Value Level of Consciousness: 0 Alert/Responsive 0 LOC Questions: 0 Answers both correctly 0 LOC Commands: 0 Performs both tasks 0 Best Gaze: 0 Normal 0 Visual: 0 No visual loss 0 Facial Palsy: 0 Normal, symmetrical 0 Motor - Left Arm 0 No drift 0 Motor - Right Arm 0 No drift 0 Motor - Left Leg 0 No drift 0 Motor: Right Leg 0 No drift 0 Limb Ataxia: 0 Absent 0 Sensory: 1 Mid to moderate loss (right face and upper arm) 1 Best Language: 0 Normal 0 Dysathria: 0 Normal 0 Extinction and Inattention: 0 Normal 0 Total 1 Problem Qualifiers Additional Impressions: Headache Headache type: unspecified Headache chronicity pattern: acute headache Intractability: not intractable Qualified Codes: R51 - Headache Chest pain Chest pain type: unspecified Qualified Codes: R07.9 - Chest pain, unspecified ROBERT OWEN DO Jan 08, 2019 00:42
[2019-01-08 01:10] VITALS: BP 117/66
[2019-01-08] MEDS ORDERED: FERR325T14 PO (02:02)
[2019-01-08] MEDS ORDERED: METF10007 PO (02:02)
[2019-01-08] MEDS ORDERED: DULO30CA2 PO (02:02)
[2019-01-08] MEDS ORDERED: LURA60TA PO (02:02)
--- NOTE | 2019-01-08 02:35 | NUR ---
Pt arrived to unit per wheelchair at 0110 to room 208. Pt assisted to bed with standby assist.Pt oriented to surroundings assessment completed vs obtained and stable. Poc explained to pt call light in reach will resume care and continue to monitor pt.
[2019-01-08 03:07] VITALS: BP 118/73
[2019-01-08 05:14] LABS: CHOLESTEROL/HDL RATIO 6.6
--- NOTE | 2019-01-08 05:51 | EKG ---
[facility] [address] [place] [address] Test Date: 2019-01-07 Test Time: 21:22:25 Pat Name: AMY LOVE Department: Room: Gender: F Cable Television Access Coordinator: GERONIMOGeorgiana : 1965 Requested By: ROBERT OWEN Order Number: [id number] Reading MD: Measurements Intervals [place] Rate: 92 P: 164 NC: 138 QRS: -173 QRSD: 78 T: 138 QT: 332 QTc: 415 Interpretive Statements SINUS RHYTHM ABNORMAL RIGHT SUPERIOR AXIS DEVIATION QRS(T) CONTOUR ABNORMALITY CONSIDER ANTEROSEPTAL MYOCARDIAL DAMAGE CONSISTENT WITH HIGH LATERAL INFARCT AGE UNDETERMINED ABNORMAL ECG RI6.01 No previous ECG available for comparison
[2019-01-08 07:00] VITALS: BP 126/79
[2019-01-08] MEDS: INSULIN LISPRO 300 UNITS/3 ML INSULN.PEN. SQ SCH ×3 (08:00→17:00)
[2019-01-08 11:00] VITALS: BP 125/78
[2019-01-08] MEDS ORDERED: ASPIRIN 325 MG TABLET PO SCH (11:00)
--- NOTE | 2019-01-08 11:28 | PDOC2 ---
ERNESTO GRIMES CORRECTIONAL CASE MANAGER 01/08/19 1128: CARDIAC CONSULT DATE OF CONSULT Date of Consult DATE: 01/08/19 TIME: 11:25 REASON FOR CONSULT Reason for Consult: Chest pain REFERRING PHYSICIAN Referring Physician: Dorys SOURCE Source: Chart review, Patient HISTORY OF PRESENT ILLNESS HISTORY OF PRESENT ILLNESS This is a pleasant 53 yo female admitted for complains of chest pain. Reports that this was right sided and mainly in the epigastric region. This was sharp and no complains of arm or jaw discomfort and no associated PARSON. No palpitations, no nausea or vomiting. No prior hx of VTE nor CAD. NO recent falls or injury. She also has been right arm tingling and also BOWSER but visual or auditory disturbances. PAST MEDICAL HISTORY Cardiovascular: Hyperlipidemia GI: GERD Psych: Depression Musculoskeletal: Osteoarthritis ENT: No pertinent hx Renal/: No pertinent hx Endocrine: Diabetes (2) Dermatology: No pertinent hx PAST SURGICAL HISTORY Past Surgical History: Tubal Ligation FAMILY HISTORY Family History: Coronary Artery Disease (mother) SOCIAL HISTORY Smoke: <1 pack per day ALCOHOL: none Drugs: None Lives: with Family CURRENT MEDICATIONS CURRENT MEDICATIONS Current Medications Medications (Trade) Dose Ordered Sig/Sriram Route PRN Reason Start Time Stop Time Status Last Admin Dose Admin Sodium Chloride 1,000 ml @ 1,000 mls/hr 1X ONCE IV 01/07/19 21:45 01/07/19 22:44 DC 01/07/19 21:45 Aspirin (Rangel Aspirin) 325 mg 1X ONCE PO 01/07/19 22:15 01/07/19 22:16 DC 01/07/19 22:36 Aspirin (Rangel Aspirin) 325 mg DAILYWBKFT PO 01/08/19 11:00 01/08/19 11:07 Duloxetine HCl (Cymbalta) 90 mg DAILY PO 01/08/19 11:30 01/08/19 11:08 Ferrous Sulfate (Feosol) 650 mg DAILY PO 01/08/19 11:30 01/08/19 11:08 Lurasidone HCl (Latuda) 60 mg DAILYWBKFT PO 01/08/19 11:30 01/08/19 11:07 ALLERGIES ALLERGIES: Coded Allergies: No Known Drug Allergies (Unverified , 10/24/16) ROS Review of System 14 point ROS evaluated with pertinent positives noted per HPI PHYSICAL EXAM General: Alert, Oriented X3, Cooperative, No acute distress HEENT: Atraumatic, Mucous membr. moist/pink Lungs: Clear to auscultation, Normal air movement Heart: Regular rate (SR), Normal S1, Normal S2, No murmurs Abdomen: Soft, No tenderness Extremities: No cyanosis, No edema Skin: No breakdown, No significant lesion Neuro: Normal speech, Sensation intact Psych/Mental Status: Mental status NL, Mood NL MUSCULOSKELETAL: Osteoarthritic changes both hands VITALS/I&O VITALS/I&O: Vital Signs Date Time Temp Pulse Resp B/P (MAP) Pulse Ox O2 Delivery O2 Flow Rate FiO2 01/08/19 11:00 98.1 68 16 125/78 (94) 95 Room Air 98.1 I & O 01/07/19 01/07/19 01/08/19 14:59 22:59 06:59 Intake Total 0 ml Balance 0 ml LABS Lab: Laboratory Tests Test 01/07/19 21:25 01/07/19 22:37 01/08/19 01:00 01/08/19 04:03 White Blood Count 11.0 x10^3/uL (4.0-11.0) Red Blood Count 5.11 x10^6/uL (3.50-5.40) Hemoglobin 14.0 g/dL (12.0-15.5) Hematocrit 41.2 % (36.0-47.0) Mean Corpuscular Volume 81 fL (79-100) Mean Corpuscular Hemoglobin 27 pg (25-35) Mean Corpuscular Hemoglobin Concent 34 g/dL (31-37) Red Cell Distribution Width 13.4 % (11.5-14.5) Platelet Count 452 x10^3/uL (140-400) H Neutrophils (%) (Auto) 61 % (31-73) Lymphocytes (%) (Auto) 29 % (24-48) Monocytes (%) (Auto) 7 % (0-9) Eosinophils (%) (Auto) 3 % (0-3) Basophils (%) (Auto) 1 % (0-3) Neutrophils # (Auto) 6.6 x10^3/uL (1.8-7.7) Lymphocytes # (Auto) 3.1 x10^3/uL (1.0-4.8) Monocytes # (Auto) 0.8 x10^3/uL (0.0-1.1) Eosinophils # (Auto) 0.3 x10^3/uL (0.0-0.7) Basophils # (Auto) 0.1 x10^3/uL (0.0-0.2) Prothrombin Time 12.2 SEC (11.7-14.0) Prothrombin Time INR 0.9 (0.8-1.1) D-Dimer (Janice) 0.30 ug/mlFEU (0.00-0.50) Sodium Level 138 mmol/L (136-145) Potassium Level 4.4 mmol/L (3.5-5.1) Chloride Level 99 mmol/L (98-107) Carbon Dioxide Level 26 mmol/L (21-32) Anion Gap 13 (6-14) Blood Urea Nitrogen 11 mg/dL (7-20) Creatinine 0.7 mg/dL (0.6-1.0) Estimated GFR (Cockcroft-Gault) 87.9 BUN/Creatinine Ratio 16 (6-20) Glucose Level 186 mg/dL (70-99) H Calcium Level 9.9 mg/dL (8.5-10.1) Magnesium Level 2.0 mg/dL (1.8-2.4) Total Bilirubin 0.2 mg/dL (0.2-1.0) Aspartate Amino Transferase (AST) 23 U/L (15-37) Alanine Aminotransferase (ALT) 51 U/L (14-59) Alkaline Phosphatase 125 U/L (46-116) H Creatine Kinase 275 U/L (26-192) H Creatine Kinase MB (Mass) 1.8 ng/mL (0.0-3.6) Creatine Kinase MB Relative Index 0.7 % (0-4) Troponin I Quantitative < 0.017 ng/mL (0.000-0.055) < 0.017 ng/mL (0.000-0.055) < 0.017 ng/mL (0.000-0.055) MV-Bac-O-Type Natriuretic Peptide 14 pg/mL (0-124) Total Protein 8.1 g/dL (6.4-8.2) Albumin 4.2 g/dL (3.4-5.0) Albumin/Globulin Ratio 1.1 (1.0-1.7) Lipase 163 U/L (73-393) Urine Collection Type Unknown Urine Color Yellow Urine Clarity Cloudy Urine pH 6.5 Urine Specific [place] 1.010 Urine Protein Negative mg/dL (NEG-TRACE) Urine Glucose (UA) Negative mg/dL (NEG) Urine Ketones (Stick) Negative mg/dL (NEG) Urine Blood Negative (NEG) Urine Nitrite Negative (NEG) Urine Bilirubin Negative (NEG) Urine Urobilinogen Dipstick 0.2 mg/dL (0.2 mg/dL) Urine Leukocyte Esterase Trace (NEG) Urine RBC 0 /HPF (0-2) Urine WBC 5-10 /HPF (0-4) Urine Squamous Epithelial Cells Few /LPF Urine Bacteria 0 /HPF (0-FEW) Urine Mucus Slight /LPF Triglycerides Level 208 mg/dL (0-150) H Cholesterol Level 212 mg/dL (0-200) H LDL Cholesterol, Calculated 138 mg/dL (0-100) H VLDL Cholesterol, Calculated 42 mg/dL (0-40) H Non-HDL Cholesterol Calculated 180 mg/dL (0-129) H HDL Cholesterol 32 mg/dL (40-60) L Cholesterol/HDL Ratio 6.6 Test 01/08/19 07:30 Glucose (Fingerstick) 132 mg/dL (70-99) H Laboratory Tests 01/07/19 21:25 Laboratory Tests 01/07/19 21:25 ASSESSMENT/PLAN ASSESSMENT/PLAN 1. Atypical CP: possibly GI 2. DM2 3. Tobaccoism 4. HLP 5. BOWSER: neurology consulted 6. Obesity Recommendations 1. TTE, TSH 2. ASA, start on statin 3. If tests unremarkable then consider for outpt stress test. 4. Smoking cessation DEQUAN ATKINSON MD 01/08/19 1653: CARDIAC CONSULT ASSESSMENT/PLAN ASSESSMENT/PLAN Patient seen and examined. Agree with RESIDENTIAL LIFE DIRECTOR's assessment and plan. Chest pain with atypical features and most probably GI etiology. Myocardial infarction has been ruled out. Check 2-D echo to assess LV function and rule out wall motion abnormalities. Plan for ischemic evaluation as an outpatient. Thank you for your consultation. ERNESTO GRIMES APRN Jan 08, 2019 11:28 DEQUAN ATKINSON MD Jan 08, 2019 16:53
[2019-01-08] MEDS ORDERED: FERROUS SULFATE 325 MG TABLET. PO SCH (11:30)
[2019-01-08] MEDS ORDERED: DULoxetine HCL 30 MG CAPSULE.DR PO SCH (11:30)
[2019-01-08] MEDS ORDERED: LURASIDONE 40 MG TABLET. PO SCH (11:30)
--- NOTE | 2019-01-08 11:51 | EKG ---
[facility] [address] [place] [address] Test Date: 2019-01-08 Test Time: 11:43:10 Pat Name: AMY LOVE Department: Room: 208 1 Gender: F Cigar Patcher: ODALYS : 1965 Requested By: ERNESTO GRIMES Order Number: [id number] Reading MD: Measurements Intervals [place] Rate: 67 P: 47 [place]: 142 QRS: 0 QRSD: 78 T: 36 QT: 388 QTc: 413 Interpretive Statements SINUS RHYTHM LEFTWARD AXIS NO SPECIFIC ECG ABNORMALITIES RI6.01 Unconfirmed report Compared to ECG 09/19/2018 13:38:30 Left-axis deviation now present
--- NOTE | 2019-01-08 12:50 | PDOC ---
[facility] PROGRESS NOTE Chief Complaint Chief Complaint CP R sided facial numbness Anxiety Depression Diabetes-Type II Hypertension History of Present Illness History of Present Illness 01/08/19 Pt seen and examined DW pt who states she has stressors at home (likely the cause of symptoms) JOHN RN regarding pt's care Reviewed pt's EKG Reviewed pt's CXR Reviewed pt's CT Reviewed chart Vitals/I&O Vitals/I&O: Vital Signs Date Time Temp Pulse Resp B/P (MAP) Pulse Ox O2 Delivery O2 Flow Rate FiO2 01/08/19 11:00 98.1 68 16 125/78 (94) 95 Room Air 98.1 I & O 01/07/19 01/07/19 01/08/19 14:59 22:59 06:59 Intake Total 0 ml Balance 0 ml Physical Exam General: Alert, Cooperative, No acute distress Heart: Regular rate, Normal S1, Normal S2 Lungs: Clear Abdomen: Normal bowel sounds, Soft Extremities: No clubbing, No cyanosis Skin: No rashes, No breakdown Labs Labs: Laboratory Tests Test 01/07/19 21:25 01/07/19 22:37 01/08/19 01:00 01/08/19 04:03 White Blood Count 11.0 x10^3/uL (4.0-11.0) Red Blood Count 5.11 x10^6/uL (3.50-5.40) Hemoglobin 14.0 g/dL (12.0-15.5) Hematocrit 41.2 % (36.0-47.0) Mean Corpuscular Volume 81 fL (79-100) Mean Corpuscular Hemoglobin 27 pg (25-35) Mean Corpuscular Hemoglobin Concent 34 g/dL (31-37) Red Cell Distribution Width 13.4 % (11.5-14.5) Platelet Count 452 x10^3/uL (140-400) Neutrophils (%) (Auto) 61 % (31-73) Lymphocytes (%) (Auto) 29 % (24-48) Monocytes (%) (Auto) 7 % (0-9) Eosinophils (%) (Auto) 3 % (0-3) Basophils (%) (Auto) 1 % (0-3) Neutrophils # (Auto) 6.6 x10^3/uL (1.8-7.7) Lymphocytes # (Auto) 3.1 x10^3/uL (1.0-4.8) Monocytes # (Auto) 0.8 x10^3/uL (0.0-1.1) Eosinophils # (Auto) 0.3 x10^3/uL (0.0-0.7) Basophils # (Auto) 0.1 x10^3/uL (0.0-0.2) Prothrombin Time 12.2 SEC (11.7-14.0) Prothromb Time International Ratio 0.9 (0.8-1.1) D-Dimer (Janice) 0.30 ug/mlFEU (0.00-0.50) Sodium Level 138 mmol/L (136-145) Potassium Level 4.4 mmol/L (3.5-5.1) Chloride Level 99 mmol/L (98-107) Carbon Dioxide Level 26 mmol/L (21-32) Anion Gap 13 (6-14) Blood Urea Nitrogen 11 mg/dL (7-20) Creatinine 0.7 mg/dL (0.6-1.0) Estimated GFR (Cockcroft-Gault) 87.9 BUN/Creatinine Ratio 16 (6-20) Glucose Level 186 mg/dL (70-99) Calcium Level 9.9 mg/dL (8.5-10.1) Magnesium Level 2.0 mg/dL (1.8-2.4) Total Bilirubin 0.2 mg/dL (0.2-1.0) Aspartate Amino Transf (AST/SGOT) 23 U/L (15-37) Alanine Aminotransferase (ALT/SGPT) 51 U/L (14-59) Alkaline Phosphatase 125 U/L (46-116) Creatine Kinase 275 U/L (26-192) Creatine Kinase MB (Mass) 1.8 ng/mL (0.0-3.6) Creatine Kinase MB Relative Index 0.7 % (0-4) Troponin I Quantitative < 0.017 ng/mL (0.000-0.055) < 0.017 ng/mL (0.000-0.055) < 0.017 ng/mL (0.000-0.055) EZ-Anr-R-Type Natriuretic Peptide 14 pg/mL (0-124) Total Protein 8.1 g/dL (6.4-8.2) Albumin 4.2 g/dL (3.4-5.0) Albumin/Globulin Ratio 1.1 (1.0-1.7) Lipase 163 U/L (73-393) Urine Collection Type Unknown Urine Color Yellow Urine Clarity Cloudy Urine pH 6.5 Urine Specific [place] 1.010 Urine Protein Negative mg/dL (NEG-TRACE) Urine Glucose (UA) Negative mg/dL (NEG) Urine Ketones (Stick) Negative mg/dL (NEG) Urine Blood Negative (NEG) Urine Nitrite Negative (NEG) Urine Bilirubin Negative (NEG) Urine Urobilinogen Dipstick 0.2 mg/dL (0.2 mg/dL) Urine Leukocyte Esterase Trace (NEG) Urine RBC 0 /HPF (0-2) Urine WBC 5-10 /HPF (0-4) Urine Squamous Epithelial Cells Few /LPF Urine Bacteria 0 /HPF (0-FEW) Urine Mucus Slight /LPF Triglycerides Level 208 mg/dL (0-150) Cholesterol Level 212 mg/dL (0-200) LDL Cholesterol, Calculated 138 mg/dL (0-100) VLDL Cholesterol, Calculated 42 mg/dL (0-40) Non-HDL Cholesterol Calculated 180 mg/dL (0-129) HDL Cholesterol 32 mg/dL (40-60) Cholesterol/HDL Ratio 6.6 Thyroid Stimulating Hormone (TSH) 2.216 uIU/mL (0.358-3.74) Test 01/08/19 07:30 01/08/19 12:13 Glucose (Fingerstick) 132 mg/dL (70-99) 127 mg/dL (70-99) Review of Systems Review of Systems: No c/o headache No c/o abd pain Assessment and Plan Assessmemt and Plan Assessment CP R sided facial numbness Anxiety Depression Diabetes-Type II Hypertension Plan Cardiac Monitoring Neuro check Labs Home meds PT/OT Full code D/c when okay w/neuro Comment Review of Relevant I have reviewed the following items martin (where applicable) has been applied. Medications: Current Medications Medications (Trade) Dose Ordered Sig/Sriram Route PRN Reason Start Time Stop Time Status Last Admin Dose Admin Sodium Chloride 1,000 ml @ 1,000 mls/hr 1X ONCE IV 01/07/19 21:45 01/07/19 22:44 DC 01/07/19 21:45 Aspirin (Rangel Aspirin) 325 mg 1X ONCE PO 01/07/19 22:15 01/07/19 22:16 DC 01/07/19 22:36 Aspirin (Rangel Aspirin) 325 mg DAILYWBKFT PO 01/08/19 11:00 01/08/19 11:07 Duloxetine HCl (Cymbalta) 90 mg DAILY PO 01/08/19 11:30 01/08/19 11:08 Ferrous Sulfate (Feosol) 650 mg DAILY PO 01/08/19 11:30 01/08/19 11:08 Lurasidone HCl (Latuda) 60 mg DAILYWBKFT PO 01/08/19 11:30 01/08/19 11:07 RIOS ZULETA III DO Jan 08, 2019 12:50
[2019-01-08] MEDS ORDERED: PANTOPRAZOLE 40 MG TABLET.DR. PO ONE (15:00)
[2019-01-08] MEDS ORDERED: ASPIRIN ENTERIC COATED 81 MG TABLET.DR. PO SCH (15:00)
[2019-01-08 15:40] VITALS: BP 140/94
[2019-01-08] MEDS ORDERED: metFORMIN 500 MG TABLET PO SCH (17:00)
--- NOTE | 2019-01-08 17:12 | CARD ---
MR#: [id number] Date of Study: 01/08/2019 Ordering Physician: ERNESTO GRIMES, Referring Physician: AKHIL FROST Tech: Elen Walters APPROVED REPORT EXAM: Two-dimensional and M-mode echocardiogram with Doppler and color Doppler. Other Information Quality : AverageHR: 74bpm INDICATION Chest Pain 2D DIMENSIONS RVDd2.9 (2.9-3.5cm)Left Atrium(2D)3.0 (1.6-4.0cm) IVSd0.9 (0.7-1.1cm)Aortic Root(2D)2.3 (2.0-3.7cm) LVDd4.4 (3.9-5.9cm)LVOT Diameter2.0 (1.8-2.4cm) PWd0.9 (0.7-1.1cm)LVDs2.4 (2.5-4.0cm) FS (%) 44.4 %SV66.3 ml LVEF(%)75.9 (>50%) Aortic Valve AoV Peak Sabino.152.0cm/sAoV VTI25.5cm AO Peak GR.9.2mmHgLVOT Peak Sabino.105.1cm/s LVOT VTI 20.52cmAO Mean GR.4mmHg SAIMA (VMAX)1.28fm2YTV (VTI)2.53cm2 Mitral Valve MV E Flonjyrx12.7cm/sMV DECEL [id number] MV A Jnaouffw40.1cm/sMV ILY43fl E/A Ratio0.9MVA (PHT)3.52cm2 TDI E/Lateral E'6.2E/Medial E'8.1 Pulmonary Valve PV Peak Qixzwtue100.7cm/sPV Peak Grad.4mmHg Tricuspid Valve TR P. [id number]/sRAP SXWRDRJH9tdAn TR Peak Gr.93kiFuNMJF15smGt Pulmonary Vein S1 Fqgqmggm24.4cm/sD2 Snlcwplz15.0cm/s PVa [id number] LEFT VENTRICLE The left ventricle is normal size. There is normal left ventricular wall thickness. The left ventricu lar systolic function is normal. The Ejection Fraction is 60-65%. There is normal LV segmental wall m otion. Transmitral Doppler flow pattern is Grade I-abnormal relaxation pattern. RIGHT VENTRICLE The right ventricle is normal size. There is normal right ventricular wall thickness. The right ventr icular systolic function is normal. ATRIA The left atrium size is normal. The right atrium size is normal. The interatrial septum is intact wit h no evidence for an atrial septal defect or patent foramen ovale as noted on 2-D or Doppler imaging. AORTIC VALVE The aortic valve is normal in structure and function. Doppler and Color Flow revealed no significant aortic regurgitation. There is no significant aortic valvular stenosis. MITRAL VALVE The mitral valve is thickened but opens well. There is no evidence of mitral valve prolapse. There is no mitral valve stenosis. Doppler and Color Flow revealed no mitral valve regurgitation noted. TRICUSPID VALVE The tricuspid valve is normal in structure and function. Doppler and Color Flow revealed trace tricus pid regurgitation with an estimated PAP of 30 mmHg. There is no tricuspid valve stenosis. PULMONIC VALVE The pulmonary valve is normal in structure and function. Doppler and Color Flow revealed no pulmonic valvular regurgitation. GREAT VESSELS The aortic root is normal in size. The IVC is normal in size and collapses >50% with inspiration. PERICARDIAL EFFUSION There is no evidence of significant pericardial effusion. Critical Notification Critical Value: No <Conclusion> The left ventricular systolic function is normal. The Ejection Fraction is 60-65%. There is normal LV segmental wall motion. Transmitral Doppler flow pattern is Grade I-abnormal relaxation pattern. Trace tricuspid regurgitation with an estimated PAP of 30 mmHg. There is no evidence of significant pericardial effusion. Signed by : Roland Brown, Electronically Approved : 01/08/2019 17:12:14
--- NOTE | 2019-01-08 17:37 | PDOC2 ---
NEUROLOGY CONSULT Date of Admission Date of Admission DATE: 01/08/19 TIME: 17:26 Reason for Consult Reason for Consult: IMPRESSION: Hand numbness, resolved. Chest pain. UTI. HTN. HLD. Obesity. RECOMMENDATIONS/PLAN: ASA 325 mg daily. Zocor 20 mg HS. Lab: see orders. Consulted Cardiology. FU with PCP. HCT negative. HISTORY OF THE PRESENT ILLNESS: This is a 53-year-old female who does not speak much Swedish came to the ER with complaints of chest pain. Reports that this was right sided and mainly in the epigastric region. This was sharp and no complains of arm or jaw discomfort and no associated PARSON. No palpitations, no nausea or vomiting. No prior hx of VTE nor CAD. NO recent falls or injury. She stated to have right arm numbness then both hands numbness, so Neurology was requested for consultation. But she stated her symptoms were resolved. PAST MEDICAL HISTORY Cardiovascular: Hyperlipidemia GI: GERD Psych: Depression Musculoskeletal: Osteoarthritis ENT: No pertinent hx Renal/: No pertinent hx Endocrine: Diabetes (2) Dermatology: No pertinent hx PAST SURGICAL HISTORY Tubal Ligation FAMILY HISTORY Coronary Artery Disease (mother) SOCIAL HISTORY Smoke: <1 pack per day ALCOHOL: none Drugs: None Lives: with Family ALLERGY: Unknown MEDICATIONS: Refer to [facility] REVIEW OF SYSTEMS: Constitutional: No malnutrition, weight loss, cachexia. Head: No traumatic brain or head injury. Skin: No edema, or rash. Ear: No infection. Eyes: No vision loss or color blindness. Nose: No bleeding or purulent discharges. Hearing: No hearing decrease. Neck: No injury. Breast: No history of cancer, masses,or discharges. Cardiac: HTN, HLD. Pulmonary: No COPD. GI: GERD. Urinary/genital: UTI. Endocrinologic: Obesity. Skeletomuscular: No muscular atrophy, deformity. Neurological: see HP. Psychiatric: Denies drug use/abuse. Otherwise, not [id number] review of systems. PHYSICAL EXAMINATION: General appearance is in no acute distress. HEENT: Normocephalic and nontraumatic. Eyes, nose, ears, and throat are unremarkable. Neck is supple. No lymphadenopathy. No crepitus. Cardiovascular: S1, S2, regular rate and rhythm. Pulmonary: Clear to auscultation bilaterally. Abdomen: Bowel sounds are positive. Abdomen is soft, nontender, and nond istended. Extremities: No rash, lesions, or edema. No restriction of range of motion NEUROLOGICAL EXAMINATION: Alert Oriented to time, place and person. PERRL. EOMI. CN: no focal findings. Muscle tone: within normal. Muscle strength: 5 DTR: 2 Plantar reflex: Flexor response bilaterally Gait: At baseline normal. Sensory exam: no abnormal findings. No cerebellar signs elicited. F-T-N test accurate. No pronator drift after 10 seconds. No LE drop after 10 seconds. Current Medications Current Medications Current Medications Sodium Chloride 1,000 ml @ 1,000 mls/hr 1X ONCE IV Last administered on 01/07/19at 21:45; Start 01/07/19 at 21:45; Stop 01/07/19 at 22:44; Status DC Aspirin ([employer] Aspirin) 325 mg 1X ONCE PO Last administered on 01/07/19at 22:36; Start 01/07/19 at 22:15; Stop 01/07/19 at 22:16; Status DC Ondansetron HCl (Zofran) 4 mg PRN Q8HRS PRN IV NAUSEA/VOMITING; Start 01/07/19 at 22:15; Stop 01/08/19 at 22:14 Fentanyl Citrate (Fentanyl 2ml Vial) 25 mcg PRN Q2HR PRN IV PAIN; Start 01/07/19 at 22:15 Insulin Human Lispro (HumaLOG) 0-5 UNITS TIDWMEALS SQ ; Start 01/08/19 at 08:00 Dextrose (Dextrose 50%-Water Syringe) 12.5 gm PRN Q15MIN PRN IV SEE COMMENTS; Start 01/07/19 at 22:15 Aspirin (Rangel Aspirin) 325 mg DAILYWBKFT PO Last administered on 01/08/19at 11:07; Start 01/08/19 at 11:00 Simvastatin (Zocor) 20 mg HS PO ; Start 01/08/19 at 21:00 Duloxetine HCl (Cymbalta) 90 mg DAILY PO Last administered on 01/08/19 11:08; Start 01/08/19 at 11:30 Ferrous Sulfate (Feosol) 650 mg DAILY PO Last administered on 01/08/19at 11:08; Start 01/08/19 at 11:30 Lurasidone HCl (Latuda) 60 mg DAILYWBKFT PO Last administered on 01/08/19at 11:07; Start 01/08/19 at 11:30 Metformin HCl (Glucophage) 1,000 mg BIDWMEALS PO ; Start 01/08/19 at 17:00 Atorvastatin Calcium (Lipitor) 20 mg QHS PO ; Start 01/08/19 at 21:00 Pantoprazole Sodium (Protonix) 40 mg DAILYAC PO ; Start 01/09/19 at 07:30 Pantoprazole Sodium (Protonix) 40 mg 1X ONCE PO Last administered on 01/08/19at 15:47; Start 01/08/19 at 15:00; Stop 01/08/19 at 15:02; Status DC Aspirin (Ecotrin) 81 mg DAILYWBKFT PO ; Start 01/08/19 at 15:00 Active Scripts Active Reported Latuda (Lurasidone Hcl) 60 Mg Tablet 60 Mg PO DAILY Metformin Hcl 1,000 Mg Tablet 1,000 Mg PO BID Cymbalta (Duloxetine Hcl) 30 Mg Capsule.dr 3 Cap PO DAILY Ferrous Sulfate 325 Mg Tablet 650 Mg PO DAILY Trazodone Hcl 150 Mg Tablet 150 Mg PO HS Allergies Allergies: Allergies Coded Allergies Type Severity Reaction Last Updated Verified No Known Drug Allergies 10/24/16 No ROS Review of System The patient denies any associated fevers, chills, headache, ear pain, rhinorrhea, sore throat, stiff neck, productive cough, chest pain, shortness of breath, back or flank pain, abdominal pain, nausea, vomiting, diarrhea, constipation, dysuria, rash, numbness, weakness, tingling, incontinence, difficulty ambulating, or diaphoresis. Physical Exam Physical Exam General: Well developed, well nourished, no acute distress, well appearing HEENT: Pupils equally round and reactive to light, EOMI, no discharge, normal conjunctiva Neck: Supple, no nuchal rigidity, no JVD, trachea midline, no tenderness Cardiac: RRR, no murmurs, no gallops, no rubs Chest/Lungs: CTAB, no wheeze, no rhonchi, no crackles Abdomen: soft, non-distended, no guarding, no peritoneal signs, non-tender Back: No tenderness Extremities: no edema, pulses intact, non-tender,capillary refill <3 sec bilateral upper and lower extremities, Neuro: Alert and oriented x 4, no focal deficits, normal speech Vitals Vitals: Vital Signs Date Time Temp Pulse Resp B/P (MAP) Pulse Ox O2 Delivery O2 Flow Rate FiO2 01/08/19 15:40 98.1 64 16 140/94 (109) 98 Room Air 98.1 Labs Labs Laboratory Tests Test 01/07/19 21:25 01/07/19 22:37 01/08/19 01:00 01/08/19 04:03 White Blood Count 11.0 x10^3/uL (4.0-11.0) Red Blood Count 5.11 x10^6/uL (3.50-5.40) Hemoglobin 14.0 g/dL (12.0-15.5) Hematocrit 41.2 % (36.0-47.0) Mean Corpuscular Volume 81 fL (79-100) Mean Corpuscular Hemoglobin 27 pg (25-35) Mean Corpuscular Hemoglobin Concent 34 g/dL (31-37) Red Cell Distribution Width 13.4 % (11.5-14.5) Platelet Count 452 x10^3/uL (140-400) Neutrophils (%) (Auto) 61 % (31-73) Lymphocytes (%) (Auto) 29 % (24-48) Monocytes (%) (Auto) 7 % (0-9) Eosinophils (%) (Auto) 3 % (0-3) Basophils (%) (Auto) 1 % (0-3) Neutrophils # (Auto) 6.6 x10^3/uL (1.8-7.7) Lymphocytes # (Auto) 3.1 x10^3/uL (1.0-4.8) Monocytes # (Auto) 0.8 x10^3/uL (0.0-1.1) Eosinophils # (Auto) 0.3 x10^3/uL (0.0-0.7) Basophils # (Auto) 0.1 x10^3/uL (0.0-0.2) Prothrombin Time 12.2 SEC (11.7-14.0) Prothromb Time International Ratio 0.9 (0.8-1.1) D-Dimer (Janice) 0.30 ug/mlFEU (0.00-0.50) Sodium Level 138 mmol/L (136-145) Potassium Level 4.4 mmol/L (3.5-5.1) Chloride Level 99 mmol/L (98-107) Carbon Dioxide Level 26 mmol/L (21-32) Anion Gap 13 (6-14) Blood Urea Nitrogen 11 mg/dL (7-20) Creatinine 0.7 mg/dL (0.6-1.0) Estimated GFR (Cockcroft-Gault) 87.9 BUN/Creatinine Ratio 16 (6-20) Glucose Level 186 mg/dL (70-99) Calcium Level 9.9 mg/dL (8.5-10.1) Magnesium Level 2.0 mg/dL (1.8-2.4) Total Bilirubin 0.2 mg/dL (0.2-1.0) Aspartate Amino Transf (AST/SGOT) 23 U/L (15-37) Alanine Aminotransferase (ALT/SGPT) 51 U/L (14-59) Alkaline Phosphatase 125 U/L (46-116) Creatine Kinase 275 U/L (26-192) Creatine Kinase MB (Mass) 1.8 ng/mL (0.0-3.6) Creatine Kinase MB Relative Index 0.7 % (0-4) Troponin I Quantitative < 0.017 ng/mL (0.000-0.055) < 0.017 ng/mL (0.000-0.055) < 0.017 ng/mL (0.000-0.055) [id number]-Type Natriuretic Peptide 14 pg/mL (0-124) Total Protein 8.1 g/dL (6.4-8.2) Albumin 4.2 g/dL (3.4-5.0) Albumin/Globulin Ratio 1.1 (1.0-1.7) Lipase 163 U/L (73-393) Urine Collection Type Unknown Urine Color Yellow Urine Clarity Cloudy Urine pH 6.5 Urine Specific Jasper 1.010 Urine Protein Negative mg/dL (NEG-TRACE) Urine Glucose (UA) Negative mg/dL (NEG) Urine Ketones (Stick) Negative mg/dL (NEG) Urine Blood Negative (NEG) Urine Nitrite Negative (NEG) Urine Bilirubin Negative (NEG) Urine Urobilinogen Dipstick 0.2 mg/dL (0.2 mg/dL) Urine Leukocyte Esterase Trace (NEG) Urine RBC 0 /HPF (0-2) Urine WBC 5-10 /HPF (0-4) Urine Squamous Epithelial Cells Few /LPF Urine Bacteria 0 /HPF (0-FEW) Urine Mucus Slight /LPF Triglycerides Level 208 mg/dL (0-150) Cholesterol Level 212 mg/dL (0-200) LDL Cholesterol, Calculated 138 mg/dL (0-100) VLDL Cholesterol, Calculated 42 mg/dL (0-40) Non-HDL Cholesterol Calculated 180 mg/dL (0-129) HDL Cholesterol 32 mg/dL (40-60) Cholesterol/HDL Ratio 6.6 Thyroid Stimulating Hormone (TSH) 2.216 uIU/mL (0.358-3.74) Test 01/08/19 07:30 01/08/19 12:13 01/08/19 17:01 Glucose (Fingerstick) 132 mg/dL (70-99) 127 mg/dL (70-99) 118 mg/dL (70-99) Laboratory Tests Test 01/07/19 21:25 01/07/19 22:37 01/08/19 01:00 01/08/19 04:03 White Blood Count 11.0 x10^3/uL (4.0-11.0) Red Blood Count 5.11 x10^6/uL (3.50-5.40) Hemoglobin 14.0 g/dL (12.0-15.5) Hematocrit 41.2 % (36.0-47.0) Mean Corpuscular Volume 81 fL (79-100) Mean Corpuscular Hemoglobin 27 pg (25-35) Mean Corpuscular Hemoglobin Concent 34 g/dL (31-37) Red Cell Distribution Width 13.4 % (11.5-14.5) Platelet Count 452 x10^3/uL (140-400) Neutrophils (%) (Auto) 61 % (31-73) Lymphocytes (%) (Auto) 29 % (24-48) Monocytes (%) (Auto) 7 % (0-9) Eosinophils (%) (Auto) 3 % (0-3) Basophils (%) (Auto) 1 % (0-3) Neutrophils # (Auto) 6.6 x10^3/uL (1.8-7.7) Lymphocytes # (Auto) 3.1 x10^3/uL (1.0-4.8) Monocytes # (Auto) 0.8 x10^3/uL (0.0-1.1) Eosinophils # (Auto) 0.3 x10^3/uL (0.0-0.7) Basophils # (Auto) 0.1 x10^3/uL (0.0-0.2) Prothrombin Time 12.2 SEC (11.7-14.0) Prothromb Time International Ratio 0.9 (0.8-1.1) D-Dimer (Janice) 0.30 ug/mlFEU (0.00-0.50) Sodium Level 138 mmol/L (136-145) Potassium Level 4.4 mmol/L (3.5-5.1) Chloride Level 99 mmol/L (98-107) Carbon Dioxide Level 26 mmol/L (21-32) Anion Gap 13 (6-14) Blood Urea Nitrogen 11 mg/dL (7-20) Creatinine 0.7 mg/dL (0.6-1.0) Estimated GFR (Cockcroft-Gault) 87.9 BUN/Creatinine Ratio 16 (6-20) Glucose Level 186 mg/dL (70-99) Calcium Level 9.9 mg/dL (8.5-10.1) Magnesium Level 2.0 mg/dL (1.8-2.4) Total Bilirubin 0.2 mg/dL (0.2-1.0) Aspartate Amino Transf (AST/SGOT) 23 U/L (15-37) Alanine Aminotransferase (ALT/SGPT) 51 U/L (14-59) Alkaline Phosphatase 125 U/L (46-116) Creatine Kinase 275 U/L (26-192) Creatine Kinase MB (Mass) 1.8 ng/mL (0.0-3.6) Creatine Kinase MB Relative Index 0.7 % (0-4) Troponin I Quantitative < 0.017 ng/mL (0.000-0.055) < 0.017 ng/mL (0.000-0.055) < 0.017 ng/mL (0.000-0.055) YN-Grp-[id number]-Type Natriuretic Peptide 14 pg/mL (0-124) Total Protein 8.1 g/dL (6.4-8.2) Albumin 4.2 g/dL (3.4-5.0) Albumin/Globulin Ratio 1.1 (1.0-1.7) Lipase 163 U/L (73-393) Urine Collection Type Unknown Urine Color Yellow Urine Clarity Cloudy Urine pH 6.5 Urine Specific Jasper 1.010 Urine Protein Negative mg/dL (NEG-TRACE) Urine Glucose (UA) Negative mg/dL (NEG) Urine Ketones (Stick) Negative mg/dL (NEG) Urine Blood Negative (NEG) Urine Nitrite Negative (NEG) Urine Bilirubin Negative (NEG) Urine Urobilinogen Dipstick 0.2 mg/dL (0.2 mg/dL) Urine Leukocyte Esterase Trace (NEG) Urine RBC 0 /HPF (0-2) Urine WBC 5-10 /HPF (0-4) Urine Squamous Epithelial Cells Few /LPF Urine Bacteria 0 /HPF (0-FEW) Urine Mucus Slight /LPF Triglycerides Level 208 mg/dL (0-150) Cholesterol Level 212 mg/dL (0-200) LDL Cholesterol, Calculated 138 mg/dL (0-100) VLDL Cholesterol, Calculated 42 mg/dL (0-40) Non-HDL Cholesterol Calculated 180 mg/dL (0-129) HDL Cholesterol 32 mg/dL (40-60) Cholesterol/HDL Ratio 6.6 Thyroid Stimulating Hormone (TSH) 2.216 uIU/mL (0.358-3.74) Test 01/08/19 07:30 01/08/19 12:13 01/08/19 17:01 Glucose (Fingerstick) 132 mg/dL (70-99) 127 mg/dL (70-99) 118 mg/dL (70-99) PATRICIA LYON MD Jan 08, 2019 17:37
--- NOTE | 2019-01-08 18:42 | NUR ---
Discharge Note: AMY LOVE Discharge instructions and discharge home medications reviewed with Patient and a copy given. All questions have been answered and understanding verbalized. The following instructions and handouts were given: chest pain, cardiac stress test Patient discharged to Home or [facility]
[2019-01-08] MEDS ORDERED: ATORVASTATIN CALCIUM 20 MG TABLET PO SCH (21:00)
[2019-01-08] MEDS ORDERED: SIMVASTATIN 20 MG TABLET PO SCH (21:00)
[2019-01-08 23:11] LABS: HEMOGLOBIN A1C 6.6 % (4.8-5.6)
[2019-01-09] MEDS ORDERED: PANTOPRAZOLE 40 MG TABLET.DR. PO SCH (07:30)
--- NOTE | 2019-01-09 13:42 | DS ---
DATE OF DISCHARGE: 01/08/2019 ADMISSION DIAGNOSIS: Stroke symptoms. DISCHARGE DIAGNOSIS: Anxiety. HOSPITAL COURSE: The patient is a pleasant 53-year-old female, who presented with bilateral facial numbness and weakness, and basically was just stressed out. She has some kids at home and I think she is a little stressed. We did consult Neurology. We also treated her headache. Yesterday, she was doing well. We discharged to home. DISPOSITION: Home. ACTIVITY: As tolerated. DIET: Low sodium. MEDICATIONS: Please see the MRAD. TOTAL TIME: 34 minutes. WEROL Sreedhar ZULETA DO DR: MIGUEL/vijaya JOB#: [id number] / [id number]
== END 2019-01-08 18:43 | disposition home or self-care (01) | DRG 92 ==
LOC: ER 21:13 → 2 NORTH 22:10
PROVIDERS: ADMIT Internal Medicine; ATTEND Internal Medicine
DX: R20.0 Anesthesia of skin (principal); N39.0 Urinary tract infection, site not specified; R07.89 Other chest pain; I10 Essential (primary) hypertension; K21.9 Gastro-esophageal reflux disease without esophagitis; F41.9 Anxiety disorder, unspecified; R51 Headache; M19.90 Unspecified osteoarthritis, unspecified site; E78.5 Hyperlipidemia, unspecified; F17.210 Nicotine dependence, cigarettes, uncomplicated; E66.9 Obesity, unspecified; F32.9 Major depressive disorder, single episode, unspecified; E11.9 Type 2 diabetes mellitus without complications; Z98.51 Tubal ligation status; Z68.37 Body mass index [BMI] 37.0-37.9, adult; Z82.49 Family history of ischemic heart disease and other diseases of the circulatory system
CPT/HCPCS: 36415; 70450; 71045; 80053; 80061; 81001; 82553; 82962; 83036; 83690; 83735; 83880; 84443; 84484; 85025; 85379; 85610; 87086; 93005; 93306; J1815; J7030; 99285-25